=== PATIENT | male | born 1965 ===

== ENCOUNTER 2018-10-10 06:41 | Day surgery (SDC) | payer OTHER, SELFPAY ==
[2018-10-04 13:35] VITALS: BMI 30.4
--- NOTE | 2018-10-10 | PATH_ITS ---
[facility] Accession Number: [id number] . 01 Material submitted: . RIGHT POSTERIOR HEMORRHOID . 02 Diagnosis: Specimen Designated Right Posterior Hemorrhoid: External hemorrhoid, partially thrombosed, negative for atypia. [facility]/10/12/2018 . 02 Electronically signed: . Pito Jauregui MD, Pathologist NPI- [id number] . 01 Gross description: . Received one formalin-filled container labeled with the patient's name and labeled right posterior hemorrhoid. The specimen consists of a dark yuan-elam, rough portion of tissue, which measures 2.4 x 0.8 x 0.4 cm. The specimen is inked blue. Three order entry representative sections are submitted in one cassette. ([id number]) /FRR . 02 Pathologist provided ICD-10: K64.9 . 02 CPT . 403404 Performed at: 01 [facility] [address] [id number] MD Ian Mcleod MD Phone: [phone] Performed at: 02 [facility] [address] [place], [place] [id number] MD Kassy Harris MD Phone: [phone]
[2018-10-10] MEDS: LACTATED RINGERS 1,000 ML 42 ML IV (07:13)
[2018-10-10 07:14] VITALS: BP 122/76; PULSE 59; RESP 12; TEMP 36.4; O2SAT 96; BMI 30.4
--- NOTE | 2018-10-10 07:43 | PM.PREOP ---
Pre-operative Note Interval Note Pre-op Check: Yes History & Physical Reviewed by Physician and Yes Exam Performed Changes: No H&P completed within 30 days and has changed as indicated here:: Patient seen and examined the preoperative area. History physical examination documented and dated September 14, 2018 has not changed. H&P is on the chart. Proceed today as planned.
[2018-10-10] MEDS: MIDAZOLAM 2 MG/2 ML VIAL IV (07:49)
--- NOTE | 2018-10-10 08:20 | SUR.OPER ---
Prone on padded OR bed, head in foam head support, gel chest rolls, gel pad under knees, pillow under lower legs, toes free of pressure, arms secured on padded arm boards at <90 degrees abduction. Safety belt at thigh.
[2018-10-10] MEDS: LIDOCAINE 1% W/EPI INJ 20 ML INJ (08:26)
[2018-10-10] MEDS: DIBUCAINE 1% OINT 28 GM 1 APPLIC TOP (08:27)
[2018-10-10 08:55] VITALS: BP 94/52; PULSE 75; RESP 16; TEMP 36.4; O2SAT 97
[2018-10-10 09:00] VITALS: BP 113/57; PULSE 81; RESP 20; TEMP 36.4; O2SAT 97
[2018-10-10 09:05] VITALS: BP 107/68; PULSE 82; RESP 16; TEMP 36.2; O2SAT 97
--- NOTE | 2018-10-10 09:08 | P.OP_ITS ---
Operative Date/Time/Diagnoses Date of procedure: 10/10/18 Time of procedure: 09:03 Pre-op diagnosis: Symptomatic hemorrhoid disease Post-op diagnosis: same Procedure & Clinicians Procedure: 1. Examination under anesthesia 2. Anoscopy 3. Hemorrhoidectomy of single question at the right posterior location Same procedure as scheduled: Yes Indications: 53-year-old male who presented with intermittent painful perianal mass. Examination and evaluation were consistent with hemorrhoid disease. Examination under anesthesia with potential hemorrhoidectomy was recommended. Surgeon: Ludwin Casarez Click Yes if Unassisted: Yes Anesthesia Type: General Operative Notes Findings: 1. Mildly inflamed right posterior external hemorrhoid in conjunction with grade 2 internal hemorrhoid. All other hemorrhoid tissue is completely normal. 2. No evidence of fistula in ANO 3. No evidence of abscess 4. No evidence of neoplasm 5. Normal distal rectal mucosa without inflammation or other abnormalities 6. No evidence of anal fissures Closure Type: primary Specimen(s): other (Right posterior hemorrhoid) Implants & Drains: None Estimated Blood Loss (mL): 10 Blood products transfused: none Procedure in detail: After obtaining informed consent the patient was brought to the operating room and left supine on the gurney. After satisfactory induction of anesthesia he was placed in the prone erlinda-knife position. All pressure points were padded appropriately. SCOAP time out was performed per standard protocol. Anal region was prepped and draped in usual sterile fashion after taping the buttocks apart. Examination under anesthesia was performed. Rectal examination revealed no abnormalities or masses. Tissue was soft. Cancino anoscope was inserted and the anorectal canal was examined meticulously and circumferentially. Findings are as above. A probe was used to interrogate the anal glands and there was no evidence of any fistula or abscesses. Attention was turned to the right posterior hemorrhoid cushion. A 2 0 chromic suture was placed at the proximal aspect of the vascular pedicle. Area was infiltrated with 1% lidocaine with 1 100,000 epinephrine for hemostasis. A v- shaped incision was created on the anoderm with 15 scalpel blade encompassing gross negative margins around the external hemorrhoid cushion. Metzenbaum scissors were then employed to meticulously sharply dissect the hemorrhoid cushion from underlying tissue. Great care was taken avoid injury to the sphincter muscles. Hemorrhoid cushion was then excised and sent for permanent section. The previously placed 2 0 chromic suture was used to reapproximate the mucosa up to the level of the anoderm in a locking fashion. A small defect in the anoderm was left for drainage purposes. Hemostasis was verified. Packing was then placed consisting of Gel-Foam and dibucaine ointment. Once again hemostasis was verified. Patient was returned to the supine position on the gurney after placing a gauze dressing. Anesthesia was reversed and patient extubated in the operating room. He was taken recovery in stable condition. Complications: none Condition: stable Disposition: PACU Plan for aftercare: 1. Discharge home 2. Follow up in surgery Clinic in 2 weeks
[2018-10-10 09:13] VITALS: BP 122/78; PULSE 78; RESP 12; TEMP 36.2; O2SAT 97
[2018-10-10] MEDS: HYDROCODONE/ACET 5/325 TABLET 1 TAB PO (09:18)
[2018-10-10 09:26] VITALS: BP 131/82; PULSE 66; RESP 15; TEMP 36.4; O2SAT 100
== END 2018-10-10 09:50 | disposition home or self-care (01) ==
PROVIDERS: PCP Internal Medicine; Visit Provider Surgery
PROC: (CPT 45990; principal; 2018-10-10 07:45)
PROC: (CPT 46255; 2018-10-10 07:45)
DX: K64.1 Second degree hemorrhoids (principal); K64.4 Residual hemorrhoidal skin tags
CPT/HCPCS: 46255; J1100; J2250; J2405; J2704; J3010

== ENCOUNTER 2018-10-16 09:55 | Emergency (ER) | payer OTHER, SELFPAY ==
[2018-10-16 10:10] VITALS: BP 135/88; PULSE 66; RESP 14; TEMP 36.2; O2SAT 99
[2018-10-16] MEDS: EPINEPHrine 1 MG/ML AMPUL 0.3 MG IM (10:25)
--- NOTE | 2018-10-16 10:29 | ED_ITS ---
HPI - Allergic Reaction General Chief complaint: Allergic Reaction Stated complaint: SWELLING OF TONUGE AND LEG POST OP Time Seen by Provider: 10/16/18 10:25 Source: patient Mode of arrival: ambulatory Limitations: no limitations History of Present Illness HPI narrative: The patient is a 53-year-old male who presents with tongue swelling which started last evening. He says he had a hemorrhoidectomy 1 week ago. He got started on a bunch of new medication he thinks that it is all stuff that he has had before including oxycodone and much stool softeners. His he has no rash but definitely does feel like his tongue is swollen and it is visibly swollen. No difficulty talking breathing. He seems to be managing his own secretions. MD complaint: allergic reaction Related Data Home Medications Medication Instructions Recorded Confirmed ibuprofen 400 mg PO TIDP PRN #0 06/16/17 10/16/18 calcium carbonate 200 mg PO BID 10/04/18 10/16/18 Benefiber 1 dose PO DAILY 10/16/18 10/16/18 dibucaine 1 applic TOPICAL DIRECTED 10/16/18 10/16/18 erehfgud-ukuybwwthDx-fmkbhdeaQ 1 applic TOPICAL DIRECTED 10/16/18 10/16/18 [Triple Antibiotic] Previous Rx's Medication Instructions Recorded docusate sodium [Colace] 100 mg PO BID #14 cap 10/10/18 oxycodone 5 mg PO Q3H PRN #40 tab 10/10/18 sennosides [Senokot] 8.6 mg PO BEDTIME #10 tab 10/10/18 epinephrine 0.3 mg IM Q10M PRN #1 each 10/16/18 Allergies Allergy/AdvReac Type Severity Reaction Status Date / Time sulfamethoxazole Allergy Unknown SWELLING Verified 10/10/18 07:51 [From BACTRIM] trimethoprim [From BACTRIM] Allergy Unknown SWELLING Verified 10/10/18 07:51 Review of Systems Review of Systems GENERAL: Denies chills, fatigue, malaise, fever, sweats, travel HEENT: See HPI RESPIRATORY: Denies dyspnea, cough, wheezing, hemoptysis, sputum. CARDIOVASCULAR: Denies chest pain, palpitations, orthopnea, edema GASTROINTESTINAL: Denies nausea, vomiting, abdominal pain, diarrhea, constipation, melena. : Denies dysuria, frequency, incontinence, hematuria, urinary retention, flank pain. MUSCULOSKELETAL: Denies weakness, joint pain, or bony pain SKIN: No rash, no erythema, no pruritus NEUROLOGIC: Denies weakness, dizziness, headache, numbness, change in speech, confusion PSYCHIATRIC: No concerning psychosocial issues. 12 point review of systems is negative except for those stated above and HPI [facility] Medical History No significant past medical history (Acute) Osteoarthritis (Acute) Perianal mass (Acute) Sleep apnea (Acute) Surgical History History of carpal tunnel release (Acute ~2009) History of colonoscopy (Acute ~12/2017) History of inguinal hernia repair, bilateral (Acute ~2005) Status post scrotal varicocelectomy (Acute ~2010) Social History marital status: household members: spouse Smoking Status: Never smoker alcohol intake: current substance use type: does not use Exam Initial Vital Signs Initial Vital Signs: Vital Signs Temperature 97.2 F L 10/16/18 10:10 Pulse Rate 66 10/16/18 10:10 Respiratory Rate 14 10/16/18 10:10 Blood Pressure 135/88 10/16/18 10:10 Pulse Oximetry 99 10/16/18 10:10 GENERAL: Well-appearing, well-nourished and in no acute distress. HEENT: Head atraumatic,EOMI, pupils reactive, tongue is visibly swollen managing own secretions lips are not swollen speaking in full sentences no stridor CARDIOVASCULAR: Regular rate and rhythm without murmurs, rubs or gallops. RESPIRATORY: Breath sounds equal bilaterally, no wheezes rales or rhonchi. ABDOMEN: Soft, nontender. Normoactive bowel sounds all 4 quadrants. No guarding or rebound. EXTREMITIES: Normal range of motion, no clubbing or edema. Neurovascularly intact NEUROLOGICAL: Alert and oriented x4.Normal gait and speech. Cranial nerves II through XII grossly intact. SKIN: Warm, dry, no laceration, no petechiae, no rashes or lesions. Course Orders Ordered: Discontinued Medications Diphenhydramine HCl (Benadryl) 50 mg IV NOW ONE Stop: 10/16/18 10:27 Last Admin: 10/16/18 10:30 Dose: 50 mg Epinephrine HCl (Adrenalin) 0.3 mg IM NOW ONE Stop: 10/16/18 10:27 Last Admin: 10/16/18 10:25 Dose: 0.3 mg Famotidine (Pepcid) 20 mg in 50 mls @ 200 mls/hr IV NOW ONE Stop: 10/16/18 10:40 Last Infusion: 10/16/18 11:48 Dose: 0 mls/hr Admin: 10/16/18 10:37 Dose: 200 mls/hr Sodium Chloride (Normal Saline 0.9%) 1,000 mls @ 1,000 mls/hr IV BOLUS PRN PRN Reason: Fluid replacement Last Infusion: 10/16/18 12:32 Dose: 0 mls/hr Admin: 10/16/18 10:37 Dose: 1,000 mls/hr Methylprednisolone (Solu-Medrol 125 Mg Vial) 125 mg IV NOW ONE Stop: 10/16/18 10:27 Last Admin: 10/16/18 10:35 Dose: 125 mg Vital Signs - 8 hr 10/16/18 10:10 10/16/18 10:35 10/16/18 10:51 Temperature 97.2 F L Pulse Rate 66 64 63 Respiratory Rate 14 14 14 Blood Pressure 135/88 Blood Pressure [Right Arm] 118/75 123/76 Pulse Oximetry 99 100 100 10/16/18 12:00 Temperature Pulse Rate 77 Respiratory Rate 15 Blood Pressure Blood Pressure [Right Arm] 117/64 Pulse Oximetry 97 MDM - Allergic Reaction MDM Narrative Medical decision making narrative: Patient is feeling better the tongue has improved. More worried about constipation. Unclear what medication has actually caused he swelling of his tongue. He says that this is actually happened 3 different times he has never been to an soft metals engraver hand. I strongly recommended he go to an soft metals engraver hand. Recommended Metamucil and stop taking the oxycodone which would help with his constipation. At this time his abdomen is soft nontender. Discharge Plan Departure Patient Disposition: Home Clinical Impression: Anaphylaxis, Constipation Discharge Date/Time: 10/16/18 12:46 Interventions: ED Discharge Assessment Last Done: 10/16/18 12:43 Instructions: Anaphylaxis Activity Restrictions/Additional Instructions: *YOU HAVE BEEN DIAGNOSED WITH ANAPHYLAXIS, CONSTIPATION *WHAT TO DO: Unclear what has caused the allergic reaction. I recommend stopping the opiate medication to help with the constipation. Continue all other stool softeners, add Metamucil once daily. Increase water intake, increase fiber *CONTINUE TO TAKE MEDICATIONS DIRECTED: Stop taking oxycodone this is causing your constipation Metamucil once a day as prescribed [id number] Colace twice a day Senokot at bedtime EpiPen if having tongue swelling *FOLLOW UP WITH YOUR PRIMARY CARE PROVIDER IN 2-3 DAYS, call Dr. Casarez for further instructions *RETURN TO ER IF YOU SHOULD HAVE tongue swelling, difficulty breathing, worsening abdominal pain OR ANY NEW, WORSENING OR CONCERNING SYMPTOMS Prescriptions: New epinephrine 0.3 mg/0.3 mL auto-injector 0.3 mg IM Q10M PRN (Reason: anaphylaxis) Qty: 1 RF: 0 No Action ibuprofen 200 MG capsule 400 mg PO TIDP PRN (Reason: Pain) Qty: 0 RF: 0 calcium carbonate 200 mg calcium (500 mg) Tablet,Chewable 200 mg PO BID RF: 0 sennosides [Senokot] 8.6 mg tablet 8.6 mg PO BEDTIME Qty: 10 RF: 1 docusate sodium [Colace] 100 mg capsule 100 mg PO BID Qty: 14 RF: 1 oxycodone 5 mg tablet 5 mg PO Q3H PRN (Reason: pain) Qty: 40 RF: 0 thahsvma-luexyynywUe-iaeuvjwfA [Triple Antibiotic] 3.5mg-400 unit- 5,000 unit/ gram Ointment 1 applic Topical DIRECTED RF: 0 Benefiber 1 dose PO DAILY RF: 0 dibucaine 1 applic Topical DIRECTED RF: 0 Referrals: Min Doll MD [Primary Care Provider] - Ludwin Casarez MD [Physician] -
[2018-10-16] MEDS: diphenhydrAMINE 50 MG/ML VIAL IV (10:30)
[2018-10-16 10:35] VITALS: BP 118/75; PULSE 64; RESP 14; O2SAT 100
[2018-10-16] MEDS: methylPREDNISolone 125 MG/2 ML VIAL IV (10:35)
[2018-10-16] MEDS: FAMOTIDINE 20 MG/50 ML PIGGYBACK 200 MG IV (10:37)
[2018-10-16] MEDS: SODIUM CHLORIDE 0.9% 1,000 ML 1000 ML IV (10:37)
[2018-10-16 10:51] VITALS: BP 123/76; PULSE 63; RESP 14; O2SAT 100
[2018-10-16 12:00] VITALS: BP 117/64; PULSE 77; RESP 15; O2SAT 97
--- NOTE | 2018-10-16 12:11 | PC.NURSE ---
patient reports that his tongue swelling is getting better but has not resolved. provider aware and no new orders at this time.
== END 2018-10-16 12:46 | disposition home or self-care (01) ==
PROVIDERS: Emergency Provider Emergency Medicine; PCP Internal Medicine
DX: T78.2XXA Anaphylactic shock, unspecified, initial encounter (principal); K59.00 Constipation, unspecified
CPT/HCPCS: 36591; 96361; 96365; 96372; 96375; 99283; 99284; J0171; J1200; J2930

== ENCOUNTER → 2019-05-10 13:28 | Outpatient (CLI) | payer OTHER, SELFPAY ==
[2019-05-12 13:55] LABS: Complement C3 114 mg/dL (82-185)
[2019-05-12 14:08] LABS: C1 Esterase Inhibitor 29 mg/dL (21-39)
[2019-05-12 15:59] LABS: Complement Total CH50 46 U/mL (31-60)
== END ==
PROVIDERS: PCP Internal Medicine; Visit Provider Internal Medicine
DX: T78.3XXD Angioneurotic edema, subsequent encounter (principal)
CPT/HCPCS: 36415; 86160; 86162

== ENCOUNTER → 2020-04-11 10:03 | Outpatient (CLI) | payer OTHER, SELFPAY ==
--- NOTE | 2020-04-11 10:06 | DI.RAD.S_ITS ---
PROCEDURE: XR CERVICAL SPINE 2V OR 3V INDICATIONS: NECK PAIN TECHNIQUE: 3 view(s) of the cervical spine were acquired. COMPARISON: None. FINDINGS: Bones: No fractures or dislocations to the C7 level. Straightening of the normal lordotic curvature. Multilevel degenerative endplate sclerosis and spurring. Diffuse facet arthropathy. The lateral masses of C1 appear intact on the odontoid view. No suspicious bony lesions. Moderate narrowing of the C5-C6 and C6-C7 disc spaces, and mild narrowing of the C7-T1 disc space. Trace anterolisthesis of C7 on T1 Soft tissues: No prevertebral soft tissue swelling. IMPRESSION: Straightening of the normal lordotic curvature. Cervical spondylosis and facet arthropathy, most pronounced at C5-C6 and C6-C7. Dictated by: Shashi Ann M.D. on 04/11/2020 at 10:33 Approved by: Shashi Ann M.D. on 04/11/2020 at 10:46
== END ==
PROVIDERS: PCP Internal Medicine; Referring Provider Internal Medicine; Visit Provider Internal Medicine
DX: M54.2 Cervicalgia (principal); M47.812 Spondylosis without myelopathy or radiculopathy, cervical region
CPT/HCPCS: 72040

== ENCOUNTER 2020-05-26 11:15 | Outpatient (RCR) | payer OTHER, SELFPAY ==
--- NOTE | 2020-04-22 16:39 | PT.OIE ---
Current Diagnoses Cervicalgia (04/22/20) Past Medical History (Last Updated 10/04/18 @ 13:40 by Katina Triplett, RN) No significant past medical history (Acute) Osteoarthritis (Acute) Perianal mass (Acute) Sleep apnea (Acute) Past Surgical History (Last Updated 10/04/18 @ 13:38 by Katina Triplett, RN) History of carpal tunnel release (Acute ~2009) History of colonoscopy (Acute ~12/2017) History of inguinal hernia repair, bilateral (Acute ~2005) Status post scrotal varicocelectomy (Acute ~2010) Visit Care Team Role Provider Type Min Doll MD Attending Provider Physician Primary Care Provider Referring Provider Specialty: Internal Medicine Address: [address] [place] [address], [facility] Email: [email or web address] [facility] Initial Evaluation PT-OP-A Visit Information Start: 04/22/20 13:01 Freq: Status: Active Protocol: Document 04/22/20 13:02 SAK (Rec: 04/22/20 13:25 SAK [id number]) Out-Patient Physical Therapy Visit Information Visit Information Visit Type Initial Evaluation Visit Start Time 13:00 Visit Stop Time 14:00 Total Visit Minutes 60 Visit Number 1 Evaluation Information Evaluation Date 04/22/20 PT-OP-B Current Condition Start: 04/22/20 13:01 Freq: Status: Active Protocol: Document 04/22/20 13:02 SAK (Rec: 04/22/20 13:25 SAK [id number]) Current Condition History of Current Condition Onset Date July 2019 Current Complaints function-limiting neck pain History of Current Condition Prior to July reports had stiffness in his neck, but gradually in July 2019 started to feel pain. Takes Ibuprofen, has used ice and heat; heat helps a little. 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 Sleeps on side. Future Testing and Treatments Planned x-ray: spondylosis and facet arthropathy worst C45, C56 Prior Functional Status Baseline Function- ADL's Independent Baseline Function- Mobility Independent Baseline Function- Work/School no pain Baseline Function- Recreation/Hobbies TV, computer Current Functional Impairments (Reported) Functional Limitations- ADL's painful to turn head, sleep Functional Limitations- Work/School painful Functional Limitations- Recreation/ painful Hobbies PT-OP-C Subjective Start: 04/22/20 13:01 Freq: Status: Active Protocol: Document 04/22/20 13:02 [facility] (Rec: 04/22/20 16:39 [facility] [id number]) Patient Questionnaires Neck Disability Index NDI Score 12 OP-PT Pain Assessment Pain Assessment Grid Paper Pain Assessment Grid Completed Yes Location bilateral cervical spine Intensity 4 Description Aching,Pressure Pain Aggravating Factors Activity,Bending Pain Alleviating Factors Position,Rest PT-OP-J Posture/Palpation/Skin Start: 04/22/20 13:01 Freq: Status: Active Protocol: Document 04/22/20 13:02 SAK (Rec: 04/22/20 16:39 [facility] [id number]) Posture Evaluation Position Sitting Head/C-Spine Posture Forward Head T-Spine Posture Increased Kyphosis L-Spine Posture Increased Lordosis Shoulder Posture (L) Rounded,(R) Rounded Scapula Posture (L) Protracted,(R) Protracted Arm Posture (L) Internally Rotated,(R) Internally Rotated Palpation Assessment Location upper traps Palpation Location rhina Palpation Findings Soft Tissue Tightness cervical paraspinals Palpation Location rhina Palpation Findings Soft Tissue Tightness PT-OP-K Range of Motion Start: 04/22/20 13:01 Freq: Status: Active Protocol: Document 04/22/20 13:02 [facility] (Rec: 04/22/20 16:39 [facility] [id number]) Cervical Spine Range of Motion Cervical Spine Active Testing Position Sitting Flexion 109 Extension 48 Rotation Left 70 Rotation Right 42 Lateral Flexion Left 40 Lateral Flexion Right 36 ROM Limitations Soft Tissue Tightness,Pain Shoulder Goniometric Range of Motion Shoulder rhina Shoulder ROM WFL Yes PT-OP-L Special Tests Start: 04/22/20 13:01 Freq: Status: Active Protocol: Document 04/22/20 13:02 [facility] (Rec: 04/22/20 16:39 [facility] [id number]) Special Tests Cervical Spine Special Tests Traction Test Results negative Foraminal Compression Test Results negative PT-OP-M Strength Start: 04/22/20 13:01 Freq: Status: Active Protocol: Document 04/22/20 13:02 SAK (Rec: 04/22/20 16:39 [facility]AK [id number]) Cervical Spine Strength Cervical Spine Manual Muscle Testing Testing Position Sitting Flexion (C1-2) 4 Good Extension 4 Good Rotation Left 4 Good Rotation Right 4 Good PT-OP-Q Treatments Start: 04/22/20 13:01 Freq: Status: Active Protocol: Document 04/22/20 13:02 [facility] (Rec: 04/22/20 16:39 [facility] [id number]) Self-Care/Home Management Treatment Education Patient Education Home Exercise Program,Pain Management,Posture Other Education written HEP issued Activities Self-Care/Home Management Activities frequent change in position, stretch into neutral posture during workday PT-OP-R Modalities Start: 04/22/20 13:01 Freq: Status: Active Protocol: Document 04/22/20 13:02 [facility]AK (Rec: 04/22/20 16:39 [facility] [id number]) Hot Pack/Cold Pack Treatment Hot Pack Location c/s Patient Position Hooklying PT-OP-T Assessment and Plan Start: 04/22/20 13:01 Freq: Status: Active Protocol: Document 04/22/20 13:02 [facility] (Rec: 04/22/20 16:39 [facility] [id number]) Physical Therapy Assessment Rehab Potential Rehabilitation Potential Good Evaluation Complexity Number of Personal Factors/Comorbidities 1-2 Number of Body Systems Impaired 3 Clinical Presentation at Evaluation Evolving Impairments Impairments Pain,Posture,ROM Goals Three Impairment posture Fpc Goal (LTG) Patient to demonstrate improved postural alignment statically and dynamically with activity and be independent with HEP for postural correction. Decrease head to wall distance to no greater than 2 finger width ( currently 4). LTG Duration 06/21/20 Two Impairment ROM Learning Disabled Teacher Goal (LTG) Improve patient's cervical rotation to 70 rhina to allow for safe driving LTG Duration 06/21/20 One Impairment pain Learning Disabled Teacher Goal (LTG) Decrease patient's neck pain to no greater than 2/10 during all usual activities including work, sleep, and driving. LTG Duration 06/21/20 Physical Therapy Plan Frequency and Duration Frequency of Treatment 2x/Week Duration of Treatment 8 wks Plan of Care Start Date 04/22/20 Plan of Care End Date 06/21/20 Next Visit Focus/Plan Next Note Type Treatment Note Next Visit Plan Review HEP, progression of postural correction exercises, manual therapy and modalities as needed.
--- NOTE | 2020-04-22 16:40 | PT.OPPOC ---
Physical, Occupational & Speech Therapy At [facility] Current Diagnoses Cervicalgia (04/22/20) Visit Care Team Role Provider Type Min Doll MD Attending Provider Physician Primary Care Provider Referring Provider Specialty: Internal Medicine Address: [address] [place] [address], [address] Email: [email or web address] Plan Of Care PT-OP-T Assessment and Plan Start: 04/22/20 13:01 Freq: Status: Active Protocol: Document 04/22/20 13:02 SAK (Rec: 04/22/20 16:39 [facility]AK [id number]) Physical Therapy Assessment Rehab Potential Rehabilitation Potential Good Evaluation Complexity Number of Personal Factors/Comorbidities 1-2 Number of Body Systems Impaired 3 Clinical Presentation at Evaluation Evolving Impairments Impairments Pain,Posture,ROM Goals Three Impairment posture Electrical Line Worker Goal (LTG) Patient to demonstrate improved postural alignment statically and dynamically with activity and be independent with HEP for postural correction. Decrease head to wall distance to no greater than 2 finger width ( currently 4). LTG Duration 06/21/20 Two Impairment ROM Electrical Line Worker Goal (LTG) Improve patient's cervical rotation to 70 rhina to allow for safe driving LTG Duration 06/21/20 One Impairment pain Electrical Line Worker Goal (LTG) Decrease patient's neck pain to no greater than 2/10 during all usual activities including work, sleep, and driving. LTG Duration 06/21/20 Physical Therapy Plan Frequency and Duration Frequency of Treatment 2x/Week Duration of Treatment 8 wks Plan of Care Start Date 04/22/20 Plan of Care End Date 06/21/20 Next Visit Focus/Plan Next Note Type Treatment Note Next Visit Plan Review HEP, progression of postural correction exercises, manual therapy and modalities as needed. Plan of Care Dates Plan of Care Start Date 04/22/20 Plan of Care End Date 06/21/20 Electronically Signed by: Shital Quinonez, PT 04/22/20 1640 Please Sign and Return: I have reviewed this Plan of Care and certify that the skilled therapy services above are required to meet the patient?s needs. Physician Signature Date Printed Name and Credentials Clinical Instructor Signature Printed Name and Credentials
--- NOTE | 2020-04-28 11:55 | PT.OTN ---
Current Diagnoses Cervicalgia (04/28/20) Physical Therapy Treatment Note PT-OP-A Visit Information Start: 04/22/20 13:01 Freq: Status: Active Protocol: Document 04/28/20 08:59 [facility] (Rec: 04/28/20 09:06 [facility] [id number]) Out-Patient Physical Therapy Visit Information Visit Information Visit Type Treatment Note Visit Start Time 09:00 Visit Stop Time 09:56 Total Visit Minutes 56 Visit Number 2 PT-OP-B Current Condition Start: 04/22/20 13:01 Freq: Status: Active Protocol: Document 04/28/20 08:59 [facility] (Rec: 04/28/20 09:06 [facility] [id number]) Current Condition History of Current Condition Onset Date July 2019 Current Complaints function-limiting neck pain History of Current Condition Prior to July reports had stiffness in his neck, but gradually in July 2019 started to feel pain. Takes Ibuprofen, has used ice and heat; heat helps a little. 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 Sleeps on side. Future Testing and Treatments Planned x-ray: spondylosis and facet arthropathy worst C45, C56 PT-OP-C Subjective Start: 04/22/20 13:01 Freq: Status: Active Protocol: Document 04/28/20 08:59 [facility] (Rec: 04/28/20 09:06 [facility] [id number]) OP-PT Subjective Patient Comments Patient Comments Had to work late last night, neck feels stiff. Did HEP 2x/day, no new c/o. PT-OP-J Posture/Palpation/Skin Start: 04/22/20 13:01 Freq: Status: Active Protocol: Document 04/22/20 13:02 [facility] (Rec: 04/22/20 16:39 [facility] [id number]) Posture Evaluation Position Sitting Head/C-Spine Posture Forward Head T-Spine Posture Increased Kyphosis L-Spine Posture Increased Lordosis Shoulder Posture (L) Rounded,(R) Rounded Scapula Posture (L) Protracted,(R) Protracted Arm Posture (L) Internally Rotated,(R) Internally Rotated Palpation Assessment Location upper traps Palpation Location rhina Palpation Findings Soft Tissue Tightness cervical paraspinals Palpation Location rhina Palpation Findings Soft Tissue Tightness PT-OP-K Range of Motion Start: 04/22/20 13:01 Freq: Status: Active Protocol: Document 04/22/20 13:02 [facility] (Rec: 04/22/20 16:39 [facility] [id number]) Cervical Spine Range of Motion Cervical Spine Active Testing Position Sitting Flexion 109 Extension 48 Rotation Left 70 Rotation Right 42 Lateral Flexion Left 40 Lateral Flexion Right 36 ROM Limitations Soft Tissue Tightness,Pain Shoulder Goniometric Range of Motion Shoulder rhina Shoulder ROM WFL Yes PT-OP-L Special Tests Start: 04/22/20 13:01 Freq: Status: Active Protocol: Document 04/22/20 13:02 [facility] (Rec: 04/22/20 16:39 [facility] [id number]) Special Tests Cervical Spine Special Tests Traction Test Results negative Foraminal Compression Test Results negative PT-OP-M Strength Start: 04/22/20 13:01 Freq: Status: Active Protocol: Document 04/22/20 13:02 [facility] (Rec: 04/22/20 16:39 [facility] [id number]) Cervical Spine Strength Cervical Spine Manual Muscle Testing Testing Position Sitting Flexion (C1-2) 4 Good Extension 4 Good Rotation Left 4 Good Rotation Right 4 Good PT-OP-Q Treatments Start: 04/22/20 13:01 Freq: Status: Active Protocol: Document 04/28/20 08:59 [facility] (Rec: 04/28/20 09:25 [facility] [id number]) Cardio Equipment Recumbent Stepper (Sci-Fit) Duration (Minutes) 5 Resistance 1 Seat Position 10 Other cues for neutral positioning Therapeutic Exercises Supine Exercises pec stretch Reps/Minutes 2x30 Comments manual shoulder ER Reps/Minutes 10x posture press Reps/Minutes 5x Sitting Exercises cervical sidebend Reps/Minutes 5x Comments enrange stretch 5th repetition with deep breath cervical rotation Reps/Minutes 5x Comments endrange stretch 5th repetition with deep breath scapular squeeze Reps/Minutes 5x shoulder shrug Reps/Minutes 5x chin tuck Reps/Minutes 5x Standing Exercises row Resistance L1 TB Reps/Minutes 10x wall posture Reps/Minutes 6x Manual Therapy Treatment Soft Tissue Mobilization 1 Body Location c/s, UT Mobilization Type Myofascial Release,Strumming, Sustained Pressure Intensity/Depth Moderate Body Position Hooklying Self-Care/Home Management Treatment Education Patient Education Home Exercise Program,Posture Other Education updated written HEP Activities Self-Care/Home Management Activities postural correction throughout the day PT-OP-R Modalities Start: 04/22/20 13:01 Freq: Status: Active Protocol: Document 04/22/20 13:02 [facility] (Rec: 04/22/20 16:39 [facility] [id number]) Hot Pack/Cold Pack Treatment Hot Pack Location c/s Patient Position Hooklying PT-OP-T Assessment and Plan Start: 04/22/20 13:01 Freq: Status: Active Protocol: Document 04/28/20 08:59 [facility] (Rec: 04/28/20 09:06 [facility] [id number]) Physical Therapy Assessment Impairments Impairments Pain,Posture,ROM Goals Three Impairment posture Hand Mold Maker Goal (LTG) Patient to demonstrate improved postural alignment statically and dynamically with activity and be independent with HEP for postural correction. Decrease head to wall distance to no greater than 2 finger width ( currently 4). LTG Duration 06/21/20 Two Impairment ROM Half-Way Goal (LTG) Improve patient's cervical rotation to 70 rhina to allow for safe driving LTG Duration 06/21/20 One Impairment pain Half-Way Goal (LTG) Decrease patient's neck pain to no greater than 2/10 during all usual activities including work, sleep, and driving. LTG Duration 06/21/20 Physical Therapy Plan Frequency and Duration Frequency of Treatment 2x/Week Duration of Treatment 8 wks Plan of Care Start Date 04/22/20 Plan of Care End Date 06/21/20 Next Visit Focus/Plan Next Note Type Treatment Note Next Visit Plan Assess response to today's PT visit, progress as tolerated with emphasis on postural correction and strengthening.
--- NOTE | 2020-04-30 10:31 | PT.OTN ---
Current Diagnoses Cervicalgia (04/30/20) Physical Therapy Treatment Note PT-OP-A Visit Information Start: 04/22/20 13:01 Freq: Status: Active Protocol: Document 04/30/20 09:50 [facility] (Rec: 04/30/20 10:26 [facility] [id number]) Out-Patient Physical Therapy Visit Information Visit Information Visit Type Treatment Note Visit Start Time 09:50 Visit Stop Time 10:30 Total Visit Minutes 40 Visit Number 3 PT-OP-B Current Condition Start: 04/22/20 13:01 Freq: Status: Active Protocol: Document 04/28/20 08:59 [facility] (Rec: 04/28/20 09:06 [facility] [id number]) Current Condition History of Current Condition Onset Date July 2019 Current Complaints function-limiting neck pain History of Current Condition Prior to July reports had stiffness in his neck, but gradually in July 2019 started to feel pain. Takes Ibuprofen, has used ice and heat; heat helps a little. 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 Sleeps on side. Future Testing and Treatments Planned x-ray: spondylosis and facet arthropathy worst C45, C56 PT-OP-C Subjective Start: 04/22/20 13:01 Freq: Status: Active Protocol: Document 04/30/20 09:50 [facility] (Rec: 04/30/20 10:26 [facility] [id number]) OP-PT Subjective Patient Comments Patient Comments Pt states that he isn't noticing any difference with PT so far since the eval and one treatment. He is presenting with posterior neck tightness. PT-OP-J Posture/Palpation/Skin Start: 04/22/20 13:01 Freq: Status: Active Protocol: Document 04/22/20 13:02 [facility] (Rec: 04/22/20 16:39 SAK [id number]) Posture Evaluation Position Sitting Head/C-Spine Posture Forward Head T-Spine Posture Increased Kyphosis L-Spine Posture Increased Lordosis Shoulder Posture (L) Rounded,(R) Rounded Scapula Posture (L) Protracted,(R) Protracted Arm Posture (L) Internally Rotated,(R) Internally Rotated Palpation Assessment Location upper traps Palpation Location rhina Palpation Findings Soft Tissue Tightness cervical paraspinals Palpation Location rhina Palpation Findings Soft Tissue Tightness PT-OP-K Range of Motion Start: 04/22/20 13:01 Freq: Status: Active Protocol: Document 04/22/20 13:02 SAK (Rec: 04/22/20 16:39 [facility] [id number]) Cervical Spine Range of Motion Cervical Spine Active Testing Position Sitting Flexion 109 Extension 48 Rotation Left 70 Rotation Right 42 Lateral Flexion Left 40 Lateral Flexion Right 36 ROM Limitations Soft Tissue Tightness,Pain Shoulder Goniometric Range of Motion Shoulder rhina Shoulder ROM WFL Yes PT-OP-L Special Tests Start: 04/22/20 13:01 Freq: Status: Active Protocol: Document 04/22/20 13:02 SAK (Rec: 04/22/20 16:39 [facility] [id number]) Special Tests Cervical Spine Special Tests Traction Test Results negative Foraminal Compression Test Results negative PT-OP-M Strength Start: 04/22/20 13:01 Freq: Status: Active Protocol: Document 04/22/20 13:02 SAK (Rec: 04/22/20 16:39 [facility] [id number]) Cervical Spine Strength Cervical Spine Manual Muscle Testing Testing Position Sitting Flexion (C1-2) 4 Good Extension 4 Good Rotation Left 4 Good Rotation Right 4 Good PT-OP-Q Treatments Start: 04/22/20 13:01 Freq: Status: Active Protocol: Document 04/30/20 09:50 MB (Rec: 04/30/20 10:26 MB [id number]) Therapeutic Exercises Standing Exercises Self-soft tissue work with racquet ball Comments Intrascapular area, upper traps MWM Manual Therapy Treatment Taping KT left upper traps Comments I strip black tape for inhibition Other Other Manual Treatments MWM B SCM with PT putting pressure on trigger points and pt performing active cervical rotation, same left greater than right upper traps, suboccipital release, B 1st rib isometric mobs PT-OP-R Modalities Start: 04/22/20 13:01 Freq: Status: Active Protocol: Document 04/22/20 13:02 [facility]AK (Rec: 04/22/20 16:39 [facility] [id number]) Hot Pack/Cold Pack Treatment Hot Pack Location c/s Patient Position Hooklying PT-OP-T Assessment and Plan Start: 04/22/20 13:01 Freq: Status: Active Protocol: Document 04/30/20 09:50 [facility] (Rec: 04/30/20 10:26 MB [id number]) Physical Therapy Assessment Rehab Potential Rehabilitation Potential Good Evaluation Complexity Number of Personal Factors/Comorbidities 1-2 Number of Body Systems Impaired 3 Clinical Presentation at Evaluation Evolving Impairments Impairments Pain,Posture,ROM Goals Three Impairment posture Retirement Goal (LTG) Patient to demonstrate improved postural alignment statically and dynamically with activity and be independent with HEP for postural correction. Decrease head to wall distance to no greater than 2 finger width ( currently 4). LTG Duration 06/21/20 Two Impairment ROM Retirement Goal (LTG) Improve patient's cervical rotation to 70 rhina to allow for safe driving LTG Duration 06/21/20 One Impairment pain Medical Technologist Prn Goal (LTG) Decrease patient's neck pain to no greater than 2/10 during all usual activities including work, sleep, and driving. LTG Duration 06/21/20 Assessment Summary Assessment Initiated manual work today. Pt presents with stiff left 1st rib, B upper traps tension , greater on the left and equal SCM tension. Pt responds well to manual work. Con't flexibility, postural and strengthening work. Physical Therapy Plan Frequency and Duration Frequency of Treatment 2x/Week Duration of Treatment 8 wks Plan of Care Start Date 04/22/20 Plan of Care End Date 06/21/20 Next Visit Focus/Plan Next Note Type Treatment Note Next Visit Plan Assess response to today's PT visit, progress as tolerated with emphasis on postural correction and strengthening.
--- NOTE | 2020-05-07 15:01 | PT.OTN ---
Current Diagnoses Cervicalgia (05/07/20) Physical Therapy Treatment Note PT-OP-A Visit Information Start: 04/22/20 13:01 Freq: Status: Active Protocol: Document 05/07/20 09:44 [facility] (Rec: 05/07/20 10:32 [facility] [id number]) Out-Patient Physical Therapy Visit Information Visit Information Visit Type Treatment Note Visit Start Time 09:45 Visit Stop Time 10:40 Total Visit Minutes 55 Visit Number 4 PT-OP-B Current Condition Start: 04/22/20 13:01 Freq: Status: Active Protocol: Document 04/28/20 08:59 [facility] (Rec: 04/28/20 09:06 [facility] [id number]) Current Condition History of Current Condition Onset Date July 2019 Current Complaints function-limiting neck pain History of Current Condition Prior to July reports had stiffness in his neck, but gradually in July 2019 started to feel pain. Takes Ibuprofen, has used ice and heat; heat helps a little. 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 Sleeps on side. Future Testing and Treatments Planned x-ray: spondylosis and facet arthropathy worst C45, C56 PT-OP-C Subjective Start: 04/22/20 13:01 Freq: Status: Active Protocol: Document 05/07/20 09:44 [facility] (Rec: 05/07/20 10:32 [facility] [id number]) OP-PT Subjective Patient Comments Patient Comments Patient reports very sore last night, spending a lot of time lifting and moving things overhead. Not sure if kinesiotape helped; left on for 3 days. No chance to get a ball to use for muscle release at home. PT-OP-J Posture/Palpation/Skin Start: 04/22/20 13:01 Freq: Status: Active Protocol: Document 04/22/20 13:02 [facility] (Rec: 04/22/20 16:39 [facility] [id number]) Posture Evaluation Position Sitting Head/C-Spine Posture Forward Head T-Spine Posture Increased Kyphosis L-Spine Posture Increased Lordosis Shoulder Posture (L) Rounded,(R) Rounded Scapula Posture (L) Protracted,(R) Protracted Arm Posture (L) Internally Rotated,(R) Internally Rotated Palpation Assessment Location upper traps Palpation Location rhina Palpation Findings Soft Tissue Tightness cervical paraspinals Palpation Location rhina Palpation Findings Soft Tissue Tightness PT-OP-K Range of Motion Start: 04/22/20 13:01 Freq: Status: Active Protocol: Document 04/22/20 13:02 SAK (Rec: 04/22/20 16:39 [facility] [id number]) Cervical Spine Range of Motion Cervical Spine Active Testing Position Sitting Flexion 109 Extension 48 Rotation Left 70 Rotation Right 42 Lateral Flexion Left 40 Lateral Flexion Right 36 ROM Limitations Soft Tissue Tightness,Pain Shoulder Goniometric Range of Motion Shoulder rhina Shoulder ROM WFL Yes PT-OP-L Special Tests Start: 04/22/20 13:01 Freq: Status: Active Protocol: Document 04/22/20 13:02 [facility]AK (Rec: 04/22/20 16:39 [facility] [id number]) Special Tests Cervical Spine Special Tests Traction Test Results negative Foraminal Compression Test Results negative PT-OP-M Strength Start: 04/22/20 13:01 Freq: Status: Active Protocol: Document 04/22/20 13:02 [facility] (Rec: 04/22/20 16:39 [facility] [id number]) Cervical Spine Strength Cervical Spine Manual Muscle Testing Testing Position Sitting Flexion (C1-2) 4 Good Extension 4 Good Rotation Left 4 Good Rotation Right 4 Good PT-OP-Q Treatments Start: 04/22/20 13:01 Freq: Status: Active Protocol: Document 05/07/20 09:44 [facility] (Rec: 05/07/20 10:32 [facility] [id number]) Cardio Equipment Recumbent Stepper (Sci-Fit) Duration (Minutes) 8 Resistance 1 Seat Position 10 Other cues for neutral positioning of head Therapeutic Exercises Supine Exercises pec stretch Reps/Minutes 2x30 Comments manual posture press Reps/Minutes 5x Sidelying Exercises reach and roll Side bilateral Reps/Minutes 5x Comments verbal and manual facilitaiton Sitting Exercises UT stretch Reps/Minutes 2x30 Comments hand holding chair chin tuck Reps/Minutes 5x Standing Exercises pec stretch Reps/Minutes 2x30 Comments doorway Self-soft tissue work with racquet ball Comments Intrascapular area, upper traps MWM row Resistance L2 TB Reps/Minutes 10x wall posture Reps/Minutes 6x Manual Therapy Treatment Soft Tissue Mobilization 1 Body Location c/s, UT Mobilization Type Myofascial Release,Strumming, Sustained Pressure Intensity/Depth Moderate Body Position Hooklying Self-Care/Home Management Treatment Education Patient Education Home Exercise Program,Posture Other Education Use of raquetball, theracane for trigger point release PT-OP-R Modalities Start: 04/22/20 13:01 Freq: Status: Active Protocol: Document 05/07/20 09:44 [facility] (Rec: 05/07/20 15:01 [facility] [id number]) Electric Stimulation Electric Stimulation Interferential Current (IFC) Body Location left c/s and shoulder Duration (Minutes) 15 Intensity 11 Target/Sweep Sweep Patient Position Hooklying Combined With Heat/Cold Hot Pack PT-OP-T Assessment and Plan Start: 04/22/20 13:01 Freq: Status: Active Protocol: Document 05/07/20 09:44 [facility] (Rec: 05/07/20 10:32 [facility] [id number]) Physical Therapy Assessment Goals Three Impairment posture Flatwork Finisher Hand Goal (LTG) Patient to demonstrate improved postural alignment statically and dynamically with activity and be independent with HEP for postural correction. Decrease head to wall distance to no greater than 2 finger width ( currently 4). LTG Duration 06/21/20 Two Impairment ROM Chcf Goal (LTG) Improve patient's cervical rotation to 70 rhina to allow for safe driving LTG Duration 06/21/20 One Impairment pain Chcf Goal (LTG) Decrease patient's neck pain to no greater than 2/10 during all usual activities including work, sleep, and driving. LTG Duration 06/21/20 Assessment Summary Assessment Feel patient's work activities are exacerbating his pain. Improved scapular retraction with row and improved cervical ROM after treatment. Demonstrated good understanding of doorway stretch. Liked use of Theracane and was given information for possible purchase. Physical Therapy Plan Frequency and Duration Frequency of Treatment 2x/Week Duration of Treatment 8 wks Plan of Care Start Date 04/22/20 Plan of Care End Date 06/21/20 Next Visit Focus/Plan Next Note Type Treatment Note Next Visit Plan Consider prone I's and T's
--- NOTE | 2020-05-09 09:42 | PT.OTN ---
Current Diagnoses Cervicalgia (05/09/20) Physical Therapy Treatment Note PT-OP-A Visit Information Start: 04/22/20 13:01 Freq: Status: Active Protocol: Document 05/09/20 09:03 LRN (Rec: 05/09/20 09:42 [facility] [id number]) Out-Patient Physical Therapy Visit Information Visit Information Visit Type Treatment Note Visit Start Time 09:03 Visit Stop Time 09:50 Total Visit Minutes 47 Visit Number 5 PT-OP-B Current Condition Start: 04/22/20 13:01 Freq: Status: Active Protocol: Document 04/28/20 08:59 [facility] (Rec: 04/28/20 09:06 [facility]AK [id number]) Current Condition History of Current Condition Onset Date July 2019 Current Complaints function-limiting neck pain History of Current Condition Prior to July reports had stiffness in his neck, but gradually in July 2019 started to feel pain. Takes Ibuprofen, has used ice and heat; heat helps a little. 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 Sleeps on side. Future Testing and Treatments Planned x-ray: spondylosis and facet arthropathy worst C45, C56 PT-OP-C Subjective Start: 04/22/20 13:01 Freq: Status: Active Protocol: Document 05/09/20 09:03 LRN (Rec: 05/09/20 09:42 [facility] [id number]) OP-PT Subjective Patient Comments Patient Comments Slight change, still has stiffness in the neck. Doing ex's at home. After E-Stim felt ms more relaxed and thinks it was helpful. PT-OP-J Posture/Palpation/Skin Start: 04/22/20 13:01 Freq: Status: Active Protocol: Document 04/22/20 13:02 SAK (Rec: 04/22/20 16:39 SAK [id number]) Posture Evaluation Position Sitting Head/C-Spine Posture Forward Head T-Spine Posture Increased Kyphosis L-Spine Posture Increased Lordosis Shoulder Posture (L) Rounded,(R) Rounded Scapula Posture (L) Protracted,(R) Protracted Arm Posture (L) Internally Rotated,(R) Internally Rotated Palpation Assessment Location upper traps Palpation Location rhina Palpation Findings Soft Tissue Tightness cervical paraspinals Palpation Location rhina Palpation Findings Soft Tissue Tightness PT-OP-K Range of Motion Start: 04/22/20 13:01 Freq: Status: Active Protocol: Document 04/22/20 13:02 SAK (Rec: 04/22/20 16:39 SAK [id number]) Cervical Spine Range of Motion Cervical Spine Active Testing Position Sitting Flexion 109 Extension 48 Rotation Left 70 Rotation Right 42 Lateral Flexion Left 40 Lateral Flexion Right 36 ROM Limitations Soft Tissue Tightness,Pain Shoulder Goniometric Range of Motion Shoulder rhina Shoulder ROM WFL Yes PT-OP-L Special Tests Start: 04/22/20 13:01 Freq: Status: Active Protocol: Document 04/22/20 13:02 SAK (Rec: 04/22/20 16:39 SAK [id number]) Special Tests Cervical Spine Special Tests Traction Test Results negative Foraminal Compression Test Results negative PT-OP-M Strength Start: 04/22/20 13:01 Freq: Status: Active Protocol: Document 04/22/20 13:02 SAK (Rec: 04/22/20 16:39 SAK [id number]) Cervical Spine Strength Cervical Spine Manual Muscle Testing Testing Position Sitting Flexion (C1-2) 4 Good Extension 4 Good Rotation Left 4 Good Rotation Right 4 Good PT-OP-Q Treatments Start: 04/22/20 13:01 Freq: Status: Active Protocol: Document 05/09/20 09:03 LRN (Rec: 05/09/20 09:42 LRN [id number]) Therapeutic Exercises Supine Exercises Scapular pinches Supine Exercise Name Scapular pinches on 1/2 roll Reps/Minutes 5 S hold x 10 pec stretch Supine Exercise Name Pec stretch on 1/2 roll Reps/Minutes 3' Sitting Exercises UT stretch Reps/Minutes 2x30 Comments hand holding chair PT-OP-R Modalities Start: 04/22/20 13:01 Freq: Status: Active Protocol: Document 05/09/20 09:03 LRN (Rec: 05/09/20 09:42 LRN [id number]) Electric Stimulation Electric Stimulation Pre-Modulated Body Location left c/s and shoulder Duration (Minutes) 15 Intensity 15 Patient Position Hooklying Combined With Heat/Cold Hot Pack Comments Legs on bolster. Hot Pack/Cold Pack Treatment Hot Pack Location c/s Patient Position Hooklying PT-OP-T Assessment and Plan Start: 04/22/20 13:01 Freq: Status: Active Protocol: Document 05/09/20 09:03 LRN (Rec: 05/09/20 09:42 LRN [id number]) Physical Therapy Assessment Goals Three Impairment posture Trim Line Worker Goal (LTG) Patient to demonstrate improved postural alignment statically and dynamically with activity and be independent with HEP for postural correction. Decrease head to wall distance to no greater than 2 finger width ( currently 4). LTG Duration 06/21/20 Two Impairment ROM Mcfp Goal (LTG) Improve patient's cervical rotation to 70 rhina to allow for safe driving LTG Duration 06/21/20 One Impairment pain Trim Line Worker Goal (LTG) Decrease patient's neck pain to no greater than 2/10 during all usual activities including work, sleep, and driving. LTG Duration 06/21/20 Assessment Summary Assessment Pt has poor postural awareness . V.cuing needed frequently during therapy. Pt responds well to adding lumbar lordosis with chin tuck to correct posture. Physical Therapy Plan Frequency and Duration Frequency of Treatment 2x/Week Duration of Treatment 8 wks Plan of Care Start Date 04/22/20 Plan of Care End Date 06/21/20 Next Visit Focus/Plan Next Note Type Treatment Note Next Visit Plan Assess response to last visit, consider prone I's and T's, progress as tolerated with emphasis on postural correction and strengthening.
--- NOTE | 2020-05-12 12:12 | PT.OTN ---
Current Diagnoses Cervicalgia (05/12/20) Physical Therapy Treatment Note PT-OP-A Visit Information Start: 04/22/20 13:01 Freq: Status: Active Protocol: Document 05/12/20 11:17 [facility] (Rec: 05/12/20 12:12 [facility] [id number]) Out-Patient Physical Therapy Visit Information Visit Information Visit Type Treatment Note Visit Start Time 11:15 Visit Stop Time 12:09 Total Visit Minutes 54 Visit Number 6 PT-OP-B Current Condition Start: 04/22/20 13:01 Freq: Status: Active Protocol: Document 04/28/20 08:59 [facility] (Rec: 04/28/20 09:06 [facility] [id number]) Current Condition History of Current Condition Onset Date July 2019 Current Complaints function-limiting neck pain History of Current Condition Prior to July reports had stiffness in his neck, but gradually in July 2019 started to feel pain. Takes Ibuprofen, has used ice and heat; heat helps a little. 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 Sleeps on side. Future Testing and Treatments Planned x-ray: spondylosis and facet arthropathy worst C45, C56 PT-OP-C Subjective Start: 04/22/20 13:01 Freq: Status: Active Protocol: Document 05/12/20 11:17 [facility] (Rec: 05/12/20 12:12 [facility] [id number]) OP-PT Subjective Patient Comments Patient Comments Neck not as stiff, though still reports pain when trying to turn or sidebend his head. Hasn't gotten a raquetball yet PT-OP-J Posture/Palpation/Skin Start: 04/22/20 13:01 Freq: Status: Active Protocol: Document 04/22/20 13:02 [facility] (Rec: 04/22/20 16:39 [facility] [id number]) Posture Evaluation Position Sitting Head/C-Spine Posture Forward Head T-Spine Posture Increased Kyphosis L-Spine Posture Increased Lordosis Shoulder Posture (L) Rounded,(R) Rounded Scapula Posture (L) Protracted,(R) Protracted Arm Posture (L) Internally Rotated,(R) Internally Rotated Palpation Assessment Location upper traps Palpation Location rhina Palpation Findings Soft Tissue Tightness cervical paraspinals Palpation Location rhina Palpation Findings Soft Tissue Tightness PT-OP-K Range of Motion Start: 04/22/20 13:01 Freq: Status: Active Protocol: Document 04/22/20 13:02 [facility] (Rec: 04/22/20 16:39 [facility] [id number]) Cervical Spine Range of Motion Cervical Spine Active Testing Position Sitting Flexion 109 Extension 48 Rotation Left 70 Rotation Right 42 Lateral Flexion Left 40 Lateral Flexion Right 36 ROM Limitations Soft Tissue Tightness,Pain Shoulder Goniometric Range of Motion Shoulder rhina Shoulder ROM WFL Yes PT-OP-L Special Tests Start: 04/22/20 13:01 Freq: Status: Active Protocol: Document 04/22/20 13:02 [facility] (Rec: 04/22/20 16:39 [facility] [id number]) Special Tests Cervical Spine Special Tests Traction Test Results negative Foraminal Compression Test Results negative PT-OP-M Strength Start: 04/22/20 13:01 Freq: Status: Active Protocol: Document 04/22/20 13:02 [facility] (Rec: 04/22/20 16:39 [facility] [id number]) Cervical Spine Strength Cervical Spine Manual Muscle Testing Testing Position Sitting Flexion (C1-2) 4 Good Extension 4 Good Rotation Left 4 Good Rotation Right 4 Good PT-OP-Q Treatments Start: 04/22/20 13:01 Freq: Status: Active Protocol: Document 05/12/20 11:17 [facility] (Rec: 05/12/20 12:12 [facility] [id number]) Cardio Equipment Recumbent Stepper (Sci-Fit) Duration (Minutes) 5 Resistance 2 Other cues for neutral positioning of head Therapeutic Exercises Supine Exercises Scapular pinches Supine Exercise Name Scapular pinches on 1/2 roll Reps/Minutes 5 S hold x 10 pec stretch Supine Exercise Name Pec stretch on 1/2 roll Reps/Minutes 3' Prone Exercises chin tuck Reps/Minutes 5x T Reps/Minutes 10x Sidelying Exercises reach and roll Side bilateral Reps/Minutes 5x Comments verbal and manual facilitaiton Sitting Exercises UT stretch Reps/Minutes 2x30 Comments hand holding opposite wrist cervical rotation Reps/Minutes 5x Comments endrange stretch 5th repetition with deep breath chin tuck Reps/Minutes 5x Standing Exercises shoulder extension Equipment Used L2 TB Reps/Minutes 10x Self-soft tissue work with racquet ball Comments Intrascapular area, upper traps MWM row Resistance L2 TB Reps/Minutes 10x Manual Therapy Treatment Soft Tissue Mobilization 1 Body Location c/s, UT, periscapular region Mobilization Type Myofascial Release,Strumming, Sustained Pressure Intensity/Depth Moderate Body Position Prone and sidelying Self-Care/Home Management Treatment Education Patient Education Home Exercise Program,Posture Other Education added reach and roll to HEP PT-OP-R Modalities Start: 04/22/20 13:01 Freq: Status: Active Protocol: Document 05/12/20 11:17 [facility] (Rec: 05/12/20 12:12 [facility] [id number]) Electric Stimulation Electric Stimulation Pre-Modulated Body Location left c/s and shoulder Duration (Minutes) 15 Intensity 15 Patient Position Hooklying Combined With Heat/Cold Hot Pack Comments Legs on bolster. PT-OP-T Assessment and Plan Start: 04/22/20 13:01 Freq: Status: Active Protocol: Document 05/12/20 11:17 [facility] (Rec: 05/12/20 12:12 [facility] [id number]) Physical Therapy Assessment Goals Three Impairment posture Asset Protection Professional Goal (LTG) Patient to demonstrate improved postural alignment statically and dynamically with activity and be independent with HEP for postural correction. Decrease head to wall distance to no greater than 2 finger width ( currently 4). LTG Duration 06/21/20 Two Impairment ROM [facility]iary Goal (LTG) Improve patient's cervical rotation to 70 rhina to allow for safe driving LTG Duration 06/21/20 One Impairment pain Penitentiary Goal (LTG) Decrease patient's neck pain to no greater than 2/10 during all usual activities including work, sleep, and driving. LTG Duration 06/21/20 Assessment Summary Assessment Patient needs verbal and manual cues for correct exercise performance. Trial ultrasound prior to cervical ROM. Added reach and roll to HEP. Physical Therapy Plan Frequency and Duration Frequency of Treatment 2x/Week Duration of Treatment 8 wks Plan of Care Start Date 04/22/20 Plan of Care End Date 06/21/20 Next Visit Focus/Plan Next Note Type Treatment Note
--- NOTE | 2020-05-12 16:24 | PT.OTN ---
Current Diagnoses Cervicalgia (05/12/20) Physical Therapy Treatment Note PT-OP-A Visit Information Start: 04/22/20 13:01 Freq: Status: Active Protocol: Document 05/12/20 11:17 [facility] (Rec: 05/12/20 12:12 [facility] [id number]) Out-Patient Physical Therapy Visit Information Visit Information Visit Type Treatment Note Visit Start Time 11:15 Visit Stop Time 12:09 Total Visit Minutes 54 Visit Number 6 PT-OP-B Current Condition Start: 04/22/20 13:01 Freq: Status: Active Protocol: Document 04/28/20 08:59 [facility] (Rec: 04/28/20 09:06 [facility] [id number]) Current Condition History of Current Condition Onset Date July 2019 Current Complaints function-limiting neck pain History of Current Condition Prior to July reports had stiffness in his neck, but gradually in July 2019 started to feel pain. Takes Ibuprofen, has used ice and heat; heat helps a little. 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 Sleeps on side. Future Testing and Treatments Planned x-ray: spondylosis and facet arthropathy worst C45, C56 PT-OP-C Subjective Start: 04/22/20 13:01 Freq: Status: Active Protocol: Document 05/12/20 11:17 [facility] (Rec: 05/12/20 12:12 [facility] [id number]) OP-PT Subjective Patient Comments Patient Comments Neck not as stiff, though still reports pain when trying to turn or sidebend his head. Hasn't gotten a raquetball yet PT-OP-J Posture/Palpation/Skin Start: 04/22/20 13:01 Freq: Status: Active Protocol: Document 04/22/20 13:02 [facility] (Rec: 04/22/20 16:39 [facility] [id number]) Posture Evaluation Position Sitting Head/C-Spine Posture Forward Head T-Spine Posture Increased Kyphosis L-Spine Posture Increased Lordosis Shoulder Posture (L) Rounded,(R) Rounded Scapula Posture (L) Protracted,(R) Protracted Arm Posture (L) Internally Rotated,(R) Internally Rotated Palpation Assessment Location upper traps Palpation Location rhina Palpation Findings Soft Tissue Tightness cervical paraspinals Palpation Location rhina Palpation Findings Soft Tissue Tightness PT-OP-K Range of Motion Start: 04/22/20 13:01 Freq: Status: Active Protocol: Document 04/22/20 13:02 [facility] (Rec: 04/22/20 16:39 [facility] [id number]) Cervical Spine Range of Motion Cervical Spine Active Testing Position Sitting Flexion 109 Extension 48 Rotation Left 70 Rotation Right 42 Lateral Flexion Left 40 Lateral Flexion Right 36 ROM Limitations Soft Tissue Tightness,Pain Shoulder Goniometric Range of Motion Shoulder rhina Shoulder ROM WFL Yes PT-OP-L Special Tests Start: 04/22/20 13:01 Freq: Status: Active Protocol: Document 04/22/20 13:02 [facility] (Rec: 04/22/20 16:39 [facility] [id number]) Special Tests Cervical Spine Special Tests Traction Test Results negative Foraminal Compression Test Results negative PT-OP-M Strength Start: 04/22/20 13:01 Freq: Status: Active Protocol: Document 04/22/20 13:02 [facility] (Rec: 04/22/20 16:39 [facility] [id number]) Cervical Spine Strength Cervical Spine Manual Muscle Testing Testing Position Sitting Flexion (C1-2) 4 Good Extension 4 Good Rotation Left 4 Good Rotation Right 4 Good PT-OP-Q Treatments Start: 04/22/20 13:01 Freq: Status: Active Protocol: Document 05/12/20 11:17 [facility] (Rec: 05/12/20 12:12 [facility] [id number]) Cardio Equipment Recumbent Stepper (Sci-Fit) Duration (Minutes) 5 Resistance 2 Other cues for neutral positioning of head Therapeutic Exercises Supine Exercises Scapular pinches Supine Exercise Name Scapular pinches on 1/2 roll Reps/Minutes 5 S hold x 10 pec stretch Supine Exercise Name Pec stretch on 1/2 roll Reps/Minutes 3' Prone Exercises chin tuck Reps/Minutes 5x T Reps/Minutes 10x Sidelying Exercises reach and roll Side bilateral Reps/Minutes 5x Comments verbal and manual facilitaiton Sitting Exercises UT stretch Reps/Minutes 2x30 Comments hand holding opposite wrist cervical rotation Reps/Minutes 5x Comments endrange stretch 5th repetition with deep breath chin tuck Reps/Minutes 5x Standing Exercises shoulder extension Equipment Used L2 TB Reps/Minutes 10x Self-soft tissue work with racquet ball Comments Intrascapular area, upper traps MWM row Resistance L2 TB Reps/Minutes 10x Manual Therapy Treatment Soft Tissue Mobilization 1 Body Location c/s, UT, periscapular region Mobilization Type Myofascial Release,Strumming, Sustained Pressure Intensity/Depth Moderate Body Position Prone and sidelying Self-Care/Home Management Treatment Education Patient Education Home Exercise Program,Posture Other Education added reach and roll to HEP PT-OP-R Modalities Start: 04/22/20 13:01 Freq: Status: Active Protocol: Document 05/12/20 11:17 [facility] (Rec: 05/12/20 12:12 [facility] [id number]) Electric Stimulation Electric Stimulation Pre-Modulated Body Location left c/s and shoulder Duration (Minutes) 15 Intensity 15 Patient Position Hooklying Combined With Heat/Cold Hot Pack Comments Legs on bolster. Ultrasound Therapy Treatment Neck Treatment Duration (minutes) 8 Patient Position Sitting Coupling Medium Ultrasound Gel Frequency Setting (mHz) 1 Mode Setting Continuous Duty Cycle 100% Intensity Setting (w/cm2) 1.3 PT-OP-T Assessment and Plan Start: 04/22/20 13:01 Freq: Status: Active Protocol: Document 05/12/20 11:17 [facility] (Rec: 05/12/20 12:12 [facility] [id number]) Physical Therapy Assessment Goals Three Impairment posture Care Home Goal (LTG) Patient to demonstrate improved postural alignment statically and dynamically with activity and be independent with HEP for postural correction. Decrease head to wall distance to no greater than 2 finger width ( currently 4). LTG Duration 06/21/20 Two Impairment ROM Care Home Goal (LTG) Improve patient's cervical rotation to 70 rhina to allow for safe driving LTG Duration 06/21/20 One Impairment pain Retail Security Professional Goal (LTG) Decrease patient's neck pain to no greater than 2/10 during all usual activities including work, sleep, and driving. LTG Duration 06/21/20 Assessment Summary Assessment Patient needs verbal and manual cues for correct exercise performance. Trial ultrasound prior to cervical ROM. Added reach and roll to HEP. Physical Therapy Plan Frequency and Duration Frequency of Treatment 2x/Week Duration of Treatment 8 wks Plan of Care Start Date 04/22/20 Plan of Care End Date 06/21/20 Next Visit Focus/Plan Next Note Type Treatment Note
--- NOTE | 2020-05-14 12:10 | PT.OTN ---
Current Diagnoses Cervicalgia (05/14/20) Physical Therapy Treatment Note PT-OP-A Visit Information Start: 04/22/20 13:01 Freq: Status: Active Protocol: Document 05/14/20 11:23 [facility] (Rec: 05/14/20 12:10 [facility] [id number]) Out-Patient Physical Therapy Visit Information Visit Information Visit Type Treatment Note Visit Start Time 11:15 Visit Stop Time 12:11 Total Visit Minutes 56 Visit Number 7 PT-OP-B Current Condition Start: 04/22/20 13:01 Freq: Status: Active Protocol: Document 04/28/20 08:59 [facility] (Rec: 04/28/20 09:06 [facility] [id number]) Current Condition History of Current Condition Onset Date July 2019 Current Complaints function-limiting neck pain History of Current Condition Prior to July reports had stiffness in his neck, but gradually in July 2019 started to feel pain. Takes Ibuprofen, has used ice and heat; heat helps a little. 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 Sleeps on side. Future Testing and Treatments Planned x-ray: spondylosis and facet arthropathy worst C45, C56 PT-OP-C Subjective Start: 04/22/20 13:01 Freq: Status: Active Protocol: Document 05/14/20 11:23 [facility] (Rec: 05/14/20 12:10 [facility] [id number]) OP-PT Subjective Patient Comments Patient Comments Shoulder feels more mobile, neck feels stiff. Not sure if ultrasound helpful. PT-OP-J Posture/Palpation/Skin Start: 04/22/20 13:01 Freq: Status: Active Protocol: Document 04/22/20 13:02 [facility] (Rec: 04/22/20 16:39 [facility] [id number]) Posture Evaluation Position Sitting Head/C-Spine Posture Forward Head T-Spine Posture Increased Kyphosis L-Spine Posture Increased Lordosis Shoulder Posture (L) Rounded,(R) Rounded Scapula Posture (L) Protracted,(R) Protracted Arm Posture (L) Internally Rotated,(R) Internally Rotated Palpation Assessment Location upper traps Palpation Location rhina Palpation Findings Soft Tissue Tightness cervical paraspinals Palpation Location rhina Palpation Findings Soft Tissue Tightness PT-OP-K Range of Motion Start: 04/22/20 13:01 Freq: Status: Active Protocol: Document 04/22/20 13:02 [facility] (Rec: 04/22/20 16:39 [facility] [id number]) Cervical Spine Range of Motion Cervical Spine Active Testing Position Sitting Flexion 109 Extension 48 Rotation Left 70 Rotation Right 42 Lateral Flexion Left 40 Lateral Flexion Right 36 ROM Limitations Soft Tissue Tightness,Pain Shoulder Goniometric Range of Motion Shoulder rhina Shoulder ROM WFL Yes PT-OP-L Special Tests Start: 04/22/20 13:01 Freq: Status: Active Protocol: Document 04/22/20 13:02 [facility] (Rec: 04/22/20 16:39 [facility] [id number]) Special Tests Cervical Spine Special Tests Traction Test Results negative Foraminal Compression Test Results negative PT-OP-M Strength Start: 04/22/20 13:01 Freq: Status: Active Protocol: Document 04/22/20 13:02 [facility] (Rec: 04/22/20 16:39 [facility] [id number]) Cervical Spine Strength Cervical Spine Manual Muscle Testing Testing Position Sitting Flexion (C1-2) 4 Good Extension 4 Good Rotation Left 4 Good Rotation Right 4 Good PT-OP-Q Treatments Start: 04/22/20 13:01 Freq: Status: Active Protocol: Document 05/14/20 11:23 [facility] (Rec: 05/14/20 12:10 [facility] [id number]) Cardio Equipment Upper Body Ergometer (UBE) Duration (Minutes) 6 RPM 60 Seat Position 10 Height 2.5 Other cues for postural alignment Therapeutic Exercises Supine Exercises Scapular pinches Supine Exercise Name Scapular pinches on 1/2 roll Reps/Minutes 5 S hold x 10 pec stretch Supine Exercise Name Pec stretch on 1/2 roll Reps/Minutes 3' Prone Exercises chin tuck Reps/Minutes 5x T Reps/Minutes 10x Sidelying Exercises reach and roll Side bilateral Reps/Minutes 5x Comments verbal and manual facilitaiton Sitting Exercises chin tuck Reps/Minutes 5x Standing Exercises wall posture Reps/Minutes 6x Comments cues for muscle activation sequence, alignment Manual Therapy Treatment Soft Tissue Mobilization 1 Body Location c/s, UT, periscapular region Mobilization Type Myofascial Release,Strumming, Sustained Pressure Intensity/Depth Moderate Body Position Prone and sidelying Manual Techniques MWM for cervical rotation Body Position Supine Reps/Duration 5 min PT-OP-R Modalities Start: 04/22/20 13:01 Freq: Status: Active Protocol: Document 05/14/20 11:23 [facility] (Rec: 05/14/20 12:10 [facility] [id number]) Electric Stimulation Electric Stimulation Pre-Modulated Body Location left c/s and shoulder Duration (Minutes) 15 Intensity 15 Patient Position Hooklying Combined With Heat/Cold Hot Pack Comments Legs on bolster. PT-OP-T Assessment and Plan Start: 04/22/20 13:01 Freq: Status: Active Protocol: Document 05/14/20 11:23 [facility] (Rec: 05/14/20 12:10 [facility] [id number]) Physical Therapy Assessment Goals Three Impairment posture Senior Care Goal (LTG) Patient to demonstrate improved postural alignment statically and dynamically with activity and be independent with HEP for postural correction. Decrease head to wall distance to no greater than 2 finger width ( currently 4). LTG Duration 06/21/20 Two Impairment ROM Learning Disabilities Teacher Goal (LTG) Improve patient's cervical rotation to 70 rhina to allow for safe driving LTG Duration 06/21/20 One Impairment pain Senior Care Goal (LTG) Decrease patient's neck pain to no greater than 2/10 during all usual activities including work, sleep, and driving. LTG Duration 06/21/20 Assessment Summary Assessment cervical rotation and sidebending WNL after manual techniques today with patient reporting decreased resistance and pain. In vertical position has difficulty with postural correction without cues. Physical Therapy Plan Frequency and Duration Frequency of Treatment 2x/Week Duration of Treatment 8 wks Plan of Care Start Date 04/22/20 Plan of Care End Date 06/21/20 Next Visit Focus/Plan Next Note Type Treatment Note Next Visit Plan Continue PT with emphasis on neutral postural alignment and stabilization, manual techniques for muscle relaxation and ROM of neck.
--- NOTE | 2020-05-19 09:45 | PT.OTN ---
Current Diagnoses Cervicalgia (05/19/20) Physical Therapy Treatment Note PT-OP-A Visit Information Start: 04/22/20 13:01 Freq: Status: Active Protocol: Document 05/19/20 09:09 SP (Rec: 05/19/20 11:37 SP [id number]) Out-Patient Physical Therapy Visit Information Visit Information Visit Type Treatment Note Visit Start Time 09:09 Visit Stop Time 09:45 Total Visit Minutes 41 Visit Number 8 Number of MANAGER OF INFORMATION Visits 1 PT-OP-B Current Condition Start: 04/22/20 13:01 Freq: Status: Active Protocol: Document 04/28/20 08:59 SAK (Rec: 04/28/20 09:06 SAK [id number]) Current Condition History of Current Condition Onset Date July 2019 Current Complaints function-limiting neck pain History of Current Condition Prior to July reports had stiffness in his neck, but gradually in July 2019 started to feel pain. Takes Ibuprofen, has used ice and heat; heat helps a little. 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 Sleeps on side. Future Testing and Treatments Planned x-ray: spondylosis and facet arthropathy worst C45, C56 PT-OP-C Subjective Start: 04/22/20 13:01 Freq: Status: Active Protocol: Document 05/19/20 09:09 SP (Rec: 05/19/20 11:37 SP [id number]) OP-PT Subjective Patient Comments Patient Comments Pt stated Shlds have been doing better lately and most has been the neck discomfort with some pain when side bends and turns. PT-OP-J Posture/Palpation/Skin Start: 04/22/20 13:01 Freq: Status: Active Protocol: Document 04/22/20 13:02 SAK (Rec: 04/22/20 16:39 SAK [id number]) Posture Evaluation Position Sitting Head/C-Spine Posture Forward Head T-Spine Posture Increased Kyphosis L-Spine Posture Increased Lordosis Shoulder Posture (L) Rounded,(R) Rounded Scapula Posture (L) Protracted,(R) Protracted Arm Posture (L) Internally Rotated,(R) Internally Rotated Palpation Assessment Location upper traps Palpation Location rhina Palpation Findings Soft Tissue Tightness cervical paraspinals Palpation Location rhina Palpation Findings Soft Tissue Tightness PT-OP-K Range of Motion Start: 04/22/20 13:01 Freq: Status: Active Protocol: Document 04/22/20 13:02 SAK (Rec: 04/22/20 16:39 SAK [id number]) Cervical Spine Range of Motion Cervical Spine Active Testing Position Sitting Flexion 109 Extension 48 Rotation Left 70 Rotation Right 42 Lateral Flexion Left 40 Lateral Flexion Right 36 ROM Limitations Soft Tissue Tightness,Pain Shoulder Goniometric Range of Motion Shoulder rhina Shoulder ROM WFL Yes PT-OP-L Special Tests Start: 04/22/20 13:01 Freq: Status: Active Protocol: Document 04/22/20 13:02 SAK (Rec: 04/22/20 16:39 SAK [id number]) Special Tests Cervical Spine Special Tests Traction Test Results negative Foraminal Compression Test Results negative PT-OP-M Strength Start: 04/22/20 13:01 Freq: Status: Active Protocol: Document 04/22/20 13:02 SAK (Rec: 04/22/20 16:39 SAK [id number]) Cervical Spine Strength Cervical Spine Manual Muscle Testing Testing Position Sitting Flexion (C1-2) 4 Good Extension 4 Good Rotation Left 4 Good Rotation Right 4 Good PT-OP-Q Treatments Start: 04/22/20 13:01 Freq: Status: Active Protocol: Document 05/19/20 09:09 SP (Rec: 05/19/20 11:37 SP [id number]) Cardio Equipment Upper Body Ergometer (UBE) Duration (Minutes) 6 RPM 60 Seat Position 10 Height 2.5 Other cues for postural alignment 3 min f/b Therapeutic Exercises Supine Exercises chin tuck Reps/Minutes 5 sec hold x5 pec stretch Supine Exercise Name Pec stretch on 11/01 roll ( forgot use 11/01 roll 05/19) Reps/Minutes 3' Comments cued knees bend on floor/table neutral LS Prone Exercises T Reps/Minutes 10x Sidelying Exercises reach and roll Side bilateral Reps/Minutes 5x Comments verbal and manual facilitaiton Sitting Exercises TS rotation Side bilateral Reps/Minutes x5 Comments cued lower trunk stable, shld depression stabilization to tolerant range Standing Exercises plank wall TS rotation Side bilateral Resistance AROM Reps/Minutes x5 R and L Comments cued scap stabilization depression during rotation and head follow wall posture Standing Exercise Name back to wall (pelvis, shld, post head) segmental roll Reps/Minutes 6x Comments cues for muscle activation sequence, alignment Manual Therapy Treatment Soft Tissue Mobilization 1 Body Location c/s, [place], SCM Mobilization Type Myofascial Release,Strumming, Sustained Pressure Intensity/Depth Moderate Body Position Prone and sidelying PT-OP-R Modalities Start: 04/22/20 13:01 Freq: Status: Active Protocol: Document 05/14/20 11:23 SAK (Rec: 05/14/20 12:10 SAK [id number]) Electric Stimulation Electric Stimulation Pre-Modulated Body Location left c/s and shoulder Duration (Minutes) 15 Intensity 15 Patient Position Hooklying Combined With Heat/Cold Hot Pack Comments Legs on bolster. PT-OP-T Assessment and Plan Start: 04/22/20 13:01 Freq: Status: Active Protocol: Document 05/19/20 09:09 SP (Rec: 05/19/20 11:37 SP [id number]) Physical Therapy Assessment Goals Three Impairment posture Snf Goal (LTG) Patient to demonstrate improved postural alignment statically and dynamically with activity and be independent with HEP for postural correction. Decrease head to wall distance to no greater than 2 finger width ( currently 4). LTG Duration 06/21/20 Two Impairment ROM Snf Goal (LTG) Improve patient's cervical rotation to 70 rhina to allow for safe driving LTG Duration 06/21/20 One Impairment pain Snf Goal (LTG) Decrease patient's neck pain to no greater than 2/10 during all usual activities including work, sleep, and driving. LTG Duration 06/21/20 Assessment Summary Assessment Pt CS rotation and sidebening improve WNL after manual techniques today. Introduced TS rotation sitting, standing and segmental small range with Max cuing for scap stabilzation and CS soft alignment for proper form to improved postural awareness. Pt demonstrated added self recorrections during new activities end of tx but will continue to assess during tx. Physical Therapy Plan Frequency and Duration Frequency of Treatment 2x/Week Duration of Treatment 8 wks Plan of Care Start Date 04/22/20 Plan of Care End Date 06/21/20 Next Visit Focus/Plan Next Note Type Treatment Note Next Visit Plan Assess response to added TS rotation sitting, plank wall and segmental trunk flex post at wall. Continue PT with emphasis on neutral postural alignment and stabilization, manual techniques for muscle relaxation and ROM of neck.
--- NOTE | 2020-05-22 11:20 | PT.OTN ---
Addendum entered and electronically signed by Emma Handley, VINNIE 05/22/20 11:39: Pt has one more appt follow up with next visit. Original Note: Current Diagnoses Cervicalgia (05/22/20) Physical Therapy Treatment Note PT-OP-A Visit Information Start: 04/22/20 13:01 Freq: Status: Active Protocol: Document 05/22/20 10:41 SP (Rec: 05/22/20 11:38 SP [id number]) Out-Patient Physical Therapy Visit Information Visit Information Visit Type Treatment Note Visit Start Time 10:41 Visit Stop Time 11:21 Total Visit Minutes 40 Visit Number 9 Number of PATENT ENGINEER Visits 2 PT-OP-B Current Condition Start: 04/22/20 13:01 Freq: Status: Active Protocol: Document 04/28/20 08:59 SAK (Rec: 04/28/20 09:06 SAK [id number]) Current Condition History of Current Condition Onset Date July 2019 Current Complaints function-limiting neck pain History of Current Condition Prior to July reports had stiffness in his neck, but gradually in July 2019 started to feel pain. Takes Ibuprofen, has used ice and heat; heat helps a little. 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 Sleeps on side. Future Testing and Treatments Planned x-ray: spondylosis and facet arthropathy worst C45, C56 PT-OP-C Subjective Start: 04/22/20 13:01 Freq: Status: Active Protocol: Document 05/22/20 10:41 SP (Rec: 05/22/20 11:38 SP [id number]) OP-PT Subjective Patient Comments Patient Comments Pt reported shld still doing well, today 5/10 base of occiput pain. PT-OP-J Posture/Palpation/Skin Start: 04/22/20 13:01 Freq: Status: Active Protocol: Document 04/22/20 13:02 SAK (Rec: 04/22/20 16:39 SAK [id number]) Posture Evaluation Position Sitting Head/C-Spine Posture Forward Head T-Spine Posture Increased Kyphosis L-Spine Posture Increased Lordosis Shoulder Posture (L) Rounded,(R) Rounded Scapula Posture (L) Protracted,(R) Protracted Arm Posture (L) Internally Rotated,(R) Internally Rotated Palpation Assessment Location upper traps Palpation Location rhina Palpation Findings Soft Tissue Tightness cervical paraspinals Palpation Location rhina Palpation Findings Soft Tissue Tightness PT-OP-K Range of Motion Start: 04/22/20 13:01 Freq: Status: Active Protocol: Document 04/22/20 13:02 SAK (Rec: 04/22/20 16:39 SAK [id number]) Cervical Spine Range of Motion Cervical Spine Active Testing Position Sitting Flexion 109 Extension 48 Rotation Left 70 Rotation Right 42 Lateral Flexion Left 40 Lateral Flexion Right 36 ROM Limitations Soft Tissue Tightness,Pain Shoulder Goniometric Range of Motion Shoulder rhina Shoulder ROM WFL Yes PT-OP-L Special Tests Start: 04/22/20 13:01 Freq: Status: Active Protocol: Document 04/22/20 13:02 SAK (Rec: 04/22/20 16:39 SAK [id number]) Special Tests Cervical Spine Special Tests Traction Test Results negative Foraminal Compression Test Results negative PT-OP-M Strength Start: 04/22/20 13:01 Freq: Status: Active Protocol: Document 04/22/20 13:02 SAK (Rec: 04/22/20 16:39 SAK [id number]) Cervical Spine Strength Cervical Spine Manual Muscle Testing Testing Position Sitting Flexion (C1-2) 4 Good Extension 4 Good Rotation Left 4 Good Rotation Right 4 Good PT-OP-Q Treatments Start: 04/22/20 13:01 Freq: Status: Active Protocol: Document 05/22/20 10:41 SP (Rec: 05/22/20 11:38 SP [id number]) Cardio Equipment Upper Body Ergometer (UBE) Duration (Minutes) 6 RPM 60 Seat Position 12 Height 2.5 Therapeutic Exercises Sitting Exercises SCM, scalene stretch Side bilateral Reps/Minutes 30 hold x2 Comments added to HEP chin tuck Reps/Minutes 5x Standing Exercises wall posture Standing Exercise Name back to wall (pelvis, shld, post head) segmental roll w/ shld ER Reps/Minutes x10 Comments cues for muscle activation sequence, alignment Manual Therapy Treatment Soft Tissue Mobilization occipital release Body Location occiput/C2 Mobilization Type Sustained Pressure Intensity/Depth Moderate Body Position supine, knees supported with pillows Comments Education for self-release with tennis/racquet balls, hand out to view. 1 Body Location c/s, UT, SCM Mobilization Type Myofascial Release,Strumming, Sustained Pressure Intensity/Depth Moderate Body Position Supine, knees supported with pillows Comments Instructed self SCM STMs to HEP with HO view PT-OP-R Modalities Start: 04/22/20 13:01 Freq: Status: Active Protocol: Document 05/14/20 11:23 SAK (Rec: 05/14/20 12:10 SAK [id number]) Electric Stimulation Electric Stimulation Pre-Modulated Body Location left c/s and shoulder Duration (Minutes) 15 Intensity 15 Patient Position Hooklying Combined With Heat/Cold Hot Pack Comments Legs on bolster. PT-OP-T Assessment and Plan Start: 04/22/20 13:01 Freq: Status: Active Protocol: Document 05/22/20 10:41 SP (Rec: 05/22/20 11:38 SP [id number]) Physical Therapy Assessment Goals Three Impairment posture Herb Digger Goal (LTG) Patient to demonstrate improved postural alignment statically and dynamically with activity and be independent with HEP for postural correction. Decrease head to wall distance to no greater than 2 finger width ( currently 4). LTG Duration 06/21/20 Two Impairment ROM Care Home Goal (LTG) Improve patient's cervical rotation to 70 rhina to allow for safe driving LTG Duration 06/21/20 One Impairment pain Care Home Goal (LTG) Decrease patient's neck pain to no greater than 2/10 during all usual activities including work, sleep, and driving. LTG Duration 06/21/20 Assessment Summary Assessment Tx focused with continued cuing for scap stabilization and CS alignment seated/ standing requiring cuing for set up and proper form. Added occipital/SCM/Scalene manual and stretching to assist decreased tighness and pain posterior neck. Pt stated did feel looser at end of tx. Physical Therapy Plan Frequency and Duration Frequency of Treatment 2x/Week Duration of Treatment 8 wks Plan of Care Start Date 04/22/20 Plan of Care End Date 06/21/20 Next Visit Focus/Plan Next Note Type Treatment Note Next Visit Plan Assess response to manual, segmental wall posture and modified TS rotation off elbows. Continue PT with emphasis on neutral postural alignment and stabilization, manual techniques for muscle relaxation and ROM of neck.
--- NOTE | 2020-07-02 08:45 | PT.OPDS ---
Current Diagnoses Cervicalgia (05/26/20) Visit Care Team Role Provider Type Min Doll MD Attending Provider Physician Primary Care Provider Referring Provider Specialty: Internal Medicine Address: [address] [place] [address], [facility] Email: [email or web address] Visit Number Visit Number 10 Discharge Summary PT-OP-B Current Condition Start: 04/22/20 13:01 Freq: Status: Active Protocol: Document 04/28/20 08:59 SAK (Rec: 04/28/20 09:06 SAK [id number]) Current Condition History of Current Condition Onset Date July 2019 Current Complaints function-limiting neck pain History of Current Condition Prior to July reports had stiffness in his neck, but gradually in July 2019 started to feel pain. Takes Ibuprofen, has used ice and heat; heat helps a little. 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 Sleeps on side. Future Testing and Treatments Planned x-ray: spondylosis and facet arthropathy worst C45, C56 PT-OP-C Subjective Start: 04/22/20 13:01 Freq: Status: Active Protocol: Document 05/26/20 11:24 SAK (Rec: 05/26/20 12:07 SAK [id number]) OP-PT Subjective Patient Comments Patient Comments Feels less muscle tension especially in shoulders, pain persists in neck, some relieved right after PT. Trying to do HEP. After today would like to do HEP indep and see if sees further improvement. Will call if feels need for further PT. PT-OP-J Posture/Palpation/Skin Start: 04/22/20 13:01 Freq: Status: Active Protocol: Document 04/22/20 13:02 SAK (Rec: 04/22/20 16:39 SAK [id number]) Posture Evaluation Position Sitting Head/C-Spine Posture Forward Head T-Spine Posture Increased Kyphosis L-Spine Posture Increased Lordosis Shoulder Posture (L) Rounded,(R) Rounded Scapula Posture (L) Protracted,(R) Protracted Arm Posture (L) Internally Rotated,(R) Internally Rotated Palpation Assessment Location upper traps Palpation Location rhina Palpation Findings Soft Tissue Tightness cervical paraspinals Palpation Location rhina Palpation Findings Soft Tissue Tightness PT-OP-K Range of Motion Start: 04/22/20 13:01 Freq: Status: Active Protocol: Document 04/22/20 13:02 SAK (Rec: 04/22/20 16:39 [facility] [id number]) Cervical Spine Range of Motion Cervical Spine Active Testing Position Sitting Flexion 109 Extension 48 Rotation Left 70 Rotation Right 42 Lateral Flexion Left 40 Lateral Flexion Right 36 ROM Limitations Soft Tissue Tightness,Pain Shoulder Goniometric Range of Motion Shoulder rhina Shoulder ROM WFL Yes PT-OP-L Special Tests Start: 04/22/20 13:01 Freq: Status: Active Protocol: Document 04/22/20 13:02 SAK (Rec: 04/22/20 16:39 [facility] [id number]) Special Tests Cervical Spine Special Tests Traction Test Results negative Foraminal Compression Test Results negative PT-OP-M Strength Start: 04/22/20 13:01 Freq: Status: Active Protocol: Document 04/22/20 13:02 SAK (Rec: 04/22/20 16:39 [facility] [id number]) Cervical Spine Strength Cervical Spine Manual Muscle Testing Testing Position Sitting Flexion (C1-2) 4 Good Extension 4 Good Rotation Left 4 Good Rotation Right 4 Good PT-OP-T Assessment and Plan Start: 04/22/20 13:01 Freq: Status: Active Protocol: Document 07/02/20 08:43 SAK (Rec: 07/02/20 08:45 [facility] [id number]) Physical Therapy Plan Discharge Physical Therapy Discharge Reasons Plateau in Progress
== END 2020-07-03 11:29 ==
LOC: PHYS 11:15
PROVIDERS: PCP Internal Medicine; Referring Provider Internal Medicine; Visit Provider Internal Medicine
DX: M54.2 Cervicalgia (principal)
CPT/HCPCS: 97010; 97014; 97032; 97035; 97110; 97140; 97162; 97535; G0283

== ENCOUNTER → 2020-08-21 09:36 | Outpatient (CLI) | payer OTHER, SELFPAY ==
--- NOTE | 2020-08-21 09:37 | DI.RAD.S_ITS ---
PROCEDURE: XR HAND LT MIN 3V INDICATIONS: OSTEOARTHRITIS TECHNIQUE: 3 views of the hand(s) acquired. COMPARISON: [facility], CR, XR HAND RT MIN 3V, 08/21/2020, 9:28. FINDINGS: Bones: No fractures or dislocations. Carpal bones are normally aligned. No suspicious bony lesions. Degenerative changes are seen throughout, which are most prominent involving the 1st carpometacarpal joint. Milder degenerative changes are seen elsewhere. Soft tissues: No suspicious soft tissue calcifications. IMPRESSION: Unremarkable hand plain films for age, with osteoarthritic degenerative changes noted. Dictated by: Jermaine Maldonado M.D. on 08/21/2020 at 9:53 Approved by: Jermaine Maldonado M.D. on 08/21/2020 at 9:54
--- NOTE | 2020-08-21 09:37 | DI.RAD.S_ITS ---
PROCEDURE: XR HAND RT MIN 3V INDICATIONS: OSTEOARTHRITIS TECHNIQUE: 3 views of the hand(s) acquired. COMPARISON: [facility], CR, XR HAND LT MIN 3V, 08/21/2020, 9:28. FINDINGS: Bones: No fractures or dislocations. Carpal bones are normally aligned. No suspicious bony lesions. Degenerative changes are seen throughout, which are most prominent involving the 1st carpometacarpal joint. Milder degenerative changes are seen elsewhere, including involving the distal interphalangeal joints. Soft tissues: No suspicious soft tissue calcifications. IMPRESSION: Age-appropriate osteoarthritic degenerative changes are seen, which are worst involving the 1st carpometacarpal joint. Dictated by: Jermaine Maldonado M.D. on 08/21/2020 at 9:54 Approved by: Jermaine Maldonado M.D. on 08/21/2020 at 9:55
== END ==
PROVIDERS: PCP Internal Medicine; Referring Provider Internal Medicine; Visit Provider Internal Medicine
DX: M19.90 Unspecified osteoarthritis, unspecified site (principal)
CPT/HCPCS: 73130

== ENCOUNTER → 2020-09-02 16:26 | Outpatient (CLI) | payer OTHER, SELFPAY ==
[2020-09-02 17:32] LABS: Alanine Aminotransferase 31 IU/L (<50); Albumin 4.6 g/dL (3.5-5.0); Albumin Globulin Ratio 1.6 (1.0-2.8); Alkaline Phosphatase 79 U/L (38-126); Aspartate Aminotransferase 33 IU/L (17-59); Bilirubin Unconjugated 0.9 mg/dL (0.0-1.1); Globulin 2.9 g/dL (1.7-4.1); HEMOLYSIS < 15 (0-50); Total Protein 7.5 g/dL (6.3-8.2)
== END ==
PROVIDERS: PCP Internal Medicine; Referring Provider Internal Medicine; Visit Provider Internal Medicine
DX: Z00.00 Encounter for general adult medical examination without abnormal findings (principal)
CPT/HCPCS: 36415; 80076

== ENCOUNTER → 2020-09-09 15:49 | Outpatient (ROUT) | payer OTHER, SELFPAY ==
[2020-09-09 16:04] LABS: BUN Creatinine Ratio 24.5 (6-22); Blood Urea Nitrogen 27 mg/dL (9-20); Calcium 10.3 mg/dL (8.4-10.2); Carbon Dioxide 32 mmol/L (22-32); Chloride 100 mmol/L (98-107); Cholesterol 187 mg/dL (140-199); Estimated Glomerular Filt Rate > 60.0 mL/min (>60); Glucose 141 mg/dL (70-100); HDL Cholesterol 39 mg/dL (40-60); HEMOLYSIS 16 (0-50); LDL Cholesterol Calculated 100 mg/dL (<100); Sodium 137 mmol/L (137-145); Triglycerides 238 mg/dL (35-150)
[2020-09-09 16:05] LABS: Hemoglobin A1C% w Est Avg Glu 5.5 % (4.0-6.0)
[2020-09-09 16:34] LABS: Prostate Specific Antigen 0.513 ng/mL (0.10-4.00)
== END ==
PROVIDERS: PCP Internal Medicine; Visit Provider Internal Medicine
DX: R03.0 Elevated blood-pressure reading, without diagnosis of hypertension (principal); E78.2 Mixed hyperlipidemia; R73.01 Impaired fasting glucose; Z00.00 Encounter for general adult medical examination without abnormal findings
CPT/HCPCS: 80048; 80061; 83036; 84153

== ENCOUNTER 2020-12-30 15:34 | Emergency (ER) | payer SELFPAY ==
[2020-12-30 15:53] VITALS: BP 173/86; PULSE 64; RESP 20; TEMP 36.3; O2SAT 96
--- NOTE | 2020-12-30 15:57 | DI.RAD.S_ITS ---
PROCEDURE: XR KNEE LT 3V INDICATIONS: glf, lt knee pain TECHNIQUE: 3 views of the knee were acquired. COMPARISON: None. FINDINGS: Bones: No fracture. Superior pole patella spur. Scattered degenerative subchondral sclerosis and spurring. Mild narrowing of the patellofemoral joint space. Soft tissues: No joint effusion. No suspicious soft tissue calcifications. IMPRESSION: No fracture. If the patient's symptoms do not improve recommend followup radiographs in 10 days to assess for healing sclerosis/occult injury. Dictated by: Shashi Ann M.D. on 12/30/2020 at 17:00 Approved by: Shashi Ann M.D. on 12/30/2020 at 17:01
--- NOTE | 2020-12-30 15:57 | DI.RAD.S_ITS ---
PROCEDURE: XR RIBS LT MIN 3V W CXR1V INDICATIONS: glf, lt rib pain, lt knee pain TECHNIQUE: 3 views of the left ribs were acquired, along with a single view chest. COMPARISON: None. FINDINGS: Surgical changes and devices: None. Bones and chest wall: No fractures or dislocations. No suspicious bony lesions. Overlying soft tissues appear unremarkable. Lungs and pleura: No pleural effusions or pneumothorax. Lungs appear clear. Mediastinum: Mediastinal contours appear normal. Heart size is normal. IMPRESSION: No radiographically visible rib fracture. Dictated by: Shashi Ann M.D. on 12/30/2020 at 17:09 Approved by: Shashi Ann M.D. on 12/30/2020 at 17:11
--- NOTE | 2020-12-30 20:32 | ED_ITS ---
HPI - Extremity Injury (Lower) General Chief Complaint: Extremity Injury, Lower Stated Complaint: LEFT KNEE AND LEFT RIBS INJURY Time Seen by Provider: 12/30/20 20:32 Source: patient and family () Mode of arrival: Ambulatory Limitations: no limitations History of Present Illness HPI Narrative: This is a 55-year-old male comes with complaint left knee and left-sided rib pain. Patient states that today he was pulling a very large rope when it sort of gave way and he fell on his left knee and left ribs. Patient states his left knee has some mild pain. He is able to walk on it with minimal issue. He does have an abrasion. He states that his tetanus is up-to-date. He is main concern is his left-sided chest wall pain. He states there was 1 location that is very tender worse with movement particularly twisting or side to side motion. He still it is not as uncomfortable. He did take some ibuprofen earlier today. At this time he describes his pain as mild he denies any other injury. He has some chronic neck pain but no acute pain today. He states he takes Prozac denies any other regular medications. He does not take any anticoagulants. He defers any additional pain medication at this time. Related Data Home Medications Medication Instructions Recorded Confirmed ibuprofen 400 mg PO TIDP PRN #0 06/16/17 10/16/18 calcium carbonate 200 mg PO BID 10/04/18 10/16/18 Benefiber 1 dose PO DAILY 10/16/18 10/16/18 dibucaine 1 applic TOPICAL DIRECTED 10/16/18 10/16/18 [id number]-[id number] 1 applic TOPICAL DIRECTED 10/16/18 10/16/18 [Triple Antibiotic] Previous Rx's Medication Instructions Recorded docusate sodium [Colace] 100 mg PO BID #14 cap 10/10/18 oxycodone 5 mg PO Q3H PRN #40 tab 10/10/18 sennosides [Senokot] 8.6 mg PO BEDTIME #10 tab 10/10/18 epinephrine 0.3 mg IM Q10M PRN #1 each 10/16/18 Allergies Allergy/AdvReac Type Severity Reaction Status Date / Time sulfamethoxazole Allergy Unknown SWELLING Verified 10/10/18 07:51 [From BACTRIM] trimethoprim [From BACTRIM] Allergy Unknown SWELLING Verified 10/10/18 07:51 Review of Systems Review of Systems ROS Unobtainable: All systems reviewed & are unremarkable except as noted in HPI and below Patient History Medical History No significant past medical history Osteoarthritis Perianal mass Sleep apnea Surgical History History of carpal tunnel release (~2009) History of colonoscopy (~12/2017) History of inguinal hernia repair, bilateral (~2005) Status post scrotal varicocelectomy (~2010) Family History Mother Hypertension Heart disease Brother Hypertension Social History marital status: household members: spouse Smoking Status: Never smoker alcohol intake: current substance use type: does not use Smoking Status: Never smoker Substance Use Type: does not use Exam Narrative Exam Narrative: GEN: Patient appears in mild distress. HEAD: No evidence of trauma, no raccoon/Chavez sign. NECK: Nontender, painless range of motion, trachea midline Negative Nexus criteria, there is no mid line tenderness, distracting injury, altered mental status, neuro deficit, recent EtOH. EYES: PERRLA, EOMI ENT: External inspection normal, trachea is midline. RESP: Chest has point tenderness at the 10th lateral rib, no obvious ecchymosis, no erythema, no subcutaneous emphysema. A patient has symmetric movement, no ecchymosis, breath sounds are normal no crackles, wheezes or rales, no tachypnea. CVS: Heart sounds are normal, no murmur noted, No JVD. ABG/GI: Nontender, soft, normal bowel sounds, no distention, no organomegaly, pelvic rock is negative NEURO: Oriented AOx3, neuro is grossly intact, sensation and motor is normal all 4 extremities moving, cranial nerves II through XII are intact, GCS is 15 PSYCH: Normal mood and affect SKIN: Intact except for an abrasion on his right knee that is superficial with some mild erythema, warm and dry, no crepitus and without decubitus BACK: No CVA tenderness, no vertebral tenderness, no step-off's, no crepitus EXT: Atraumatic other than described above, hips are nontender, no pedal edema, normal color and temperature, normal range of motion of extremities with normal tendon exam, 2+ pulses in all four extremities Initial Vital Signs Initial Vital Signs: Vital Signs Temperature 97.3 F L 12/30/20 15:53 Pulse Rate 64 12/30/20 15:53 Respiratory Rate 20 12/30/20 15:53 Blood Pressure 173/86 H 12/30/20 15:53 Pulse Oximetry 96 12/30/20 15:53 Course Orders Ordered: ED Orders 12/30/20 15:57 XR knee LT 3V Stat XR ribs LT min 3V w CXR1V Stat Vital Signs Vital signs: Vital Signs - 8 hr 12/30/20 20:55 Pulse Rate 60 Respiratory Rate 18 Blood Pressure 174/98 H Pulse Oximetry 99 MDM - Extremity Injury (Lower) Imaging Data Extremity x-ray #1: Radiologist's Impression: Ethan Contreras 55 M [address] [id number] ReportSigned Patient: Ethan Contreras MMR#: [id number]: 1965Acct:[id number]/Sex: 55 / MDate of Service: 12/30/20Loc: EDAccession Number: [id number] Procedure: XR knee LT 3V Ordering Provider: Seferino Hicks MD PROCEDURE: XR KNEE LT 3V INDICATIONS: glf, lt knee pain TECHNIQUE: 3 views of the knee were acquired. COMPARISON: None. FINDINGS: Bones: No fracture. Superior pole patella spur. Scattered degenerative subchondral sclerosis and spurring. Mild narrowing of the patellofemoral joint space. Soft tissues: No joint effusion. No suspicious soft tissue calcifications. IMPRESSION: No fracture. If the patient's symptoms do not improve recommend followup radiographs in 10 days to assess for healing sclerosis/occult injury. Dictated by: Shashi Ann M.D. on 12/30/2020 at 17:00 Approved by: Shashi Ann M.D. on 12/30/2020 at 17:01 Chest x-ray: Radiologist's Impression: [address] [id number] ReportSigned Patient: Ethan Contreras MMR#: [id number]: 1965Acct:[id number]/Sex: 55 / MDate of Service: 12/30/20Loc: EDAccession Number: [id number] Procedure: XR ribs LT min 3V w CXR1V Ordering Provider: Seferino Hicks MD PROCEDURE: XR RIBS LT MIN 3V W CXR1V INDICATIONS: glf, lt rib pain, lt knee pain TECHNIQUE: 3 views of the left ribs were acquired, along with a single view chest. COMPARISON: None. FINDINGS: Surgical changes and devices: None. Bones and chest wall: No fractures or dislocations. No suspicious bony lesions. Overlying soft tissues appear unremarkable. Lungs and pleura: No pleural effusions or pneumothorax. Lungs appear clear. Mediastinum: Mediastinal contours appear normal. Heart size is normal. IMPRESSION: No radiographically visible rib fracture. Dictated by: Shashi Ann M.D. on 12/30/2020 at 17:09 Approved by: Shashi Ann M.D. on 12/30/2020 at 17:11 [facility] Narrative Medical decision making narrative: 55-year-old male with left rib contusion and knee abrasion after a fall while at work. Patient has an abrasion plan for basic wound care. Discussed patient's x-ray findings no obvious rib fractures he does have some point tenderness, no ecchymosis or other changes. Would treat as an rib fracture. Return precautions were discussed. Patient's L and I paperwork was filled out. Discharge Plan Departure Patient Disposition: Home Clinical Impression: Contusion of rib on left side, Acute pain of left knee Instructions: DI for Rib Contusion Activity Restrictions/Additional Instructions: Follow up with your L&I provider or primary care physician in the next week if no improvement in your knee pain up for any worsening pain in your chest. He may continue with ibuprofen up to 800 mg every 8 hours. May also take Tylenol up to a 1000 mg every 8 hours as needed. You may splint with pillow or your upper extremity on the side of rib pain when you sneeze or cough. Return for fevers, worsening chest pain, shortness of breath, lightheadedness or passing out, rapidly worsening chest pain. Rapidly worsening bruising, new redness, swelling of your knee, signs of infection or other new or concerning symptoms. Prescriptions: No Action ibuprofen 200 MG capsule 400 mg PO TIDP PRN (Reason: Pain) Qty: 0 RF: 0 calcium carbonate 200 mg calcium (500 mg) Tablet,Chewable 200 mg PO BID RF: 0 sennosides [Senokot] 8.6 mg tablet 8.6 mg PO BEDTIME Qty: 10 RF: 1 docusate sodium [Colace] 100 mg capsule 100 mg PO BID Qty: 14 RF: 1 oxycodone 5 mg tablet 5 mg PO Q3H PRN (Reason: pain) Qty: 40 RF: 0 qzrppulv-bfzrugqkiYf-yetykrjtJ [Triple Antibiotic] 3.5mg-400 unit- 5,000 unit/gram Ointment 1 applic Topical DIRECTED RF: 0 Benefiber 1 dose PO DAILY RF: 0 dibucaine 1 applic Topical DIRECTED RF: 0 epinephrine 0.3 mg/0.3 mL auto-injector 0.3 mg IM Q10M PRN (Reason: anaphylaxis) Qty: 1 RF: 0 Referrals: Min Doll MD [Primary Care Provider] - Stand Alone Forms: Work Release Note
[2020-12-30 20:55] VITALS: BP 174/98; PULSE 60; RESP 18; O2SAT 99
== END 2020-12-30 20:56 | disposition home or self-care (01) ==
PROVIDERS: Emergency Provider Emergency Medicine; PCP Internal Medicine
DX: S80.02XA Contusion of left knee, initial encounter (principal); S20.212A Contusion of left front wall of thorax, initial encounter; W18.30XA Fall on same level, unspecified, initial encounter
CPT/HCPCS: 71101; 73562; 99283

== ENCOUNTER → 2021-02-20 15:19 | Outpatient (CLI) | payer OTHER, SELFPAY ==
[2021-02-20] MEDS: COVID-19 VACC #1, MRNA(MOD) 100 MCG/0.5 ML VIAL IM (15:29)
== END ==
PROVIDERS: PCP Internal Medicine; Visit Provider Internal Medicine
DX: Z23 Encounter for immunization (principal)
CPT/HCPCS: 0011A; 91301

== ENCOUNTER → 2021-03-20 15:11 | Outpatient (CLI) | payer OTHER, SELFPAY ==
[2021-03-20] MEDS: COVID-19 VACC #2, MRNA(MOD) 100 MCG/0.5 ML VIAL IM (15:24)
== END ==
PROVIDERS: PCP Internal Medicine; Visit Provider Internal Medicine
DX: Z23 Encounter for immunization (principal)
CPT/HCPCS: 0012A; 91301